=== PATIENT | female | born 1955 | race Caucasian/White ===

== ENCOUNTER → 2021-08-27 13:11 | Outpatient (CLI) | payer MEDICARE, OTHER, SELFPAY | PROVIDERS: PCP Family Medicine; Referring Provider Family Medicine; Visit Provider Family Medicine | DX: Z78.0 Asymptomatic menopausal state (principal); Z13.820 Encounter for screening for osteoporosis | CPT/HCPCS: 77080 ==

== ENCOUNTER 2022-10-15 14:14 | Emergency (ER) | payer OTHER, MEDICARE, SELFPAY ==
[2022-10-15 14:17] VITALS: BP 165/98; PULSE 98; RESP 18; TEMP 37.2; O2SAT 99; BMI 21.2
--- NOTE | 2022-10-15 14:30 | ED_ITS ---
HPI - Epistaxis <Chaitanya Feldman PA-C - Last Filed: 10/15/22 19:04> General Chief complaint: Nasal Problem Stated complaint: Nose bleed 1 hr Time Seen by Provider: 10/15/22 14:28 Source: patient Mode of arrival: Ambulatory History of Present Illness HPI Narrative: This is a 67-year-old female presents emergency department due to epistaxis. Patient states that she was playing with her dog last night when it jumped up and hit her in the nose. She is not reporting any significant nasal pain but does report a nosebleeds from the left naris that would not stop bleeding. She is not on blood thinners. She denies any losses consciousness and has not felt lightheaded or dizzy. No difficulty breathing or swallowing. Related Data Previous Rx's Medication Instructions Recorded hydrochlorothiazide 25 mg tablet See Rx Instructions .Route 09/09/22 .COMPLEX #90 tabs atenolol 50 mg tablet See Rx Instructions .Route 09/10/22 .COMPLEX #90 tabs losartan 100 mg tablet See Rx Instructions .Route 09/10/22 .COMPLEX #90 tabs Allergies Allergy/AdvReac Type Severity Reaction Status Date / Time Penicillins Allergy Unknown unknown Verified 07/23/18 13:07 Review of Systems <Chaitanya Feldman PA-C - Last Filed: 10/15/22 19:04> Review of Systems Narrative: GENERAL: Denies chills, fatigue, malaise, fever, sweats. HEENT: Reports left-sided epistaxis. Denies sinus pain, ear pain, sore throat, difficulty swallowing, dizziness. RESPIRATORY: Denies dyspnea, cough, wheezing, hemoptysis, sputum. CARDIOVASCULAR: Denies chest pain, palpitations, orthopnea, edema, GASTROINTESTINAL: Denies nausea, vomiting, abdominal pain, diarrhea, constipation, melena. : Denies dysuria, frequency, incontinence, hematuria, urinary retention. MUSCULOSKELETAL: denies weakness, joint pain, or bony pain SKIN: Denies rash, skin lesions, or other NEUROLOGIC: Denies weakness, headache, numbness, change in speech, confusion, seizures, incoordination. PSYCHIATRIC: No concerning psychosocial issues. 12 point review of systems is negative except for those stated above Patient History <GREYSON White Last Filed: 10/15/22 19:04> Medical History Chicken pox Colon polyps Hypertension (~1987) Psoriatic arthritis Surgical History Anesthesia History of section (~08/02/87) Family History Mother PKD (polycystic kidney disease) Father Peripheral neuropathy Social History marital status: number of children: 1 household members: spouse lives independently: Yes occupational status: other (retired) Smoking Status: Never smoker alcohol intake: current (occasional) substance use type: does not use Smoking Status: Never smoker alcohol intake frequency: a few times a month Substance Use Type: does not use Exam <Chaitanya Feldman PA-C - Last Filed: 10/15/22 19:04> Narrative Exam Narrative: GENERAL: Well-developed patient, in mild distress. HEAD: Atraumatic. Normocephalic. EYES: Pupils equal round and reactive. Extraocular motions intact. No scleral icterus. No injection or drainage. ENT: No nasal bone tenderness to palpation. Bleeding from left naris. Unable to visualize exact source of bleed secondary to the amount of blood in the nares. No obvious evidence of hematoma. Throat without erythema, tonsillar hypertrophy or exudate. Airway patent. NECK: Trachea midline. Non tender EXTREMITIES: No edema or joint tenderness. BACK: Nontender without deformity or crepitance. No flank tenderness. NEURO: AOx3. SKIN: No rash or erythema of visible areas Initial Vital Signs Initial Vital Signs: Vital Signs Temperature 98.9 F 10/15/22 14:17 Pulse Rate 98 H 10/15/22 14:17 Respiratory Rate 18 10/15/22 14:17 Blood Pressure 165/98 H 10/15/22 14:17 Pulse Oximetry 99 10/15/22 14:17 Oxygen Delivery Method Room Air 10/15/22 14:17 <Cory Andrews DO - Last Filed: 10/21/22 03:56> Initial Vital Signs Initial Vital Signs: Vital Signs Temperature 98.9 F 10/15/22 14:17 Pulse Rate 98 H 10/15/22 14:17 Respiratory Rate 18 10/15/22 14:17 Blood Pressure 165/98 H 10/15/22 14:17 Pulse Oximetry 99 10/15/22 14:17 Oxygen Delivery Method Room Air 10/15/22 14:17 Course <Chaitanya Feldman PA-C - Last Filed: 10/15/22 19:04> Orders Ordered: Discontinued Medications Oxymetazoline HCl (Oxymetazoline Nasal Lawrence 15 Ml) 2 sprays NASAL NOW ONE Stop: 10/15/22 14:44 Last Admin: 10/15/22 15:02 Dose: 2 sprays Documented By: PARIS Tranexamic Acid (Tranexamic Acid 1,000 Mg Vial) 2,000 mg INJ INTRA-OP ONE Stop: 10/15/22 15:07 Last Admin: 10/15/22 15:08 Dose: 1,000 mg Documented By: PARIS Vital Signs Vital signs: Vital Signs - 8 hr 10/15/22 14:17 10/15/22 15:43 Temperature 98.9 F Pulse Rate 98 H 72 Respiratory Rate 18 14 Blood Pressure 165/98 H 145/80 H Pulse Oximetry 99 99 Oxygen Delivery Method Room Air Room Air <Cory Andrews DO - Last Filed: 10/21/22 03:56> Orders Ordered: Discontinued Medications Oxymetazoline HCl (Oxymetazoline Nasal Lawrence 15 Ml) 2 sprays NASAL NOW ONE Stop: 10/15/22 14:44 Last Admin: 10/15/22 15:02 Dose: 2 sprays Documented By: PARIS Tranexamic Acid (Tranexamic Acid 1,000 Mg Vial) 2,000 mg INJ INTRA-OP ONE Stop: 10/15/22 15:07 Last Admin: 10/15/22 15:08 Dose: 1,000 mg Documented By: PARIS Vital Signs Vital signs: Vital Signs - 8 hr 10/15/22 14:17 10/15/22 15:43 Temperature 98.9 F Pulse Rate 98 H 72 Respiratory Rate 18 14 Blood Pressure 165/98 H 145/80 H Pulse Oximetry 99 99 Oxygen Delivery Method Room Air Room Air MDM - Epistaxis <Chaitanya Feldman PA-C - Last Filed: 10/15/22 19:04> MDM Narrative Medical decision making narrative: MDM * differential diagnosis includes but not limited to nasal bone fracture, anterior epistaxis, posterior epistaxis, nasal septal hematoma * Prior records reviewed: Patient has not been here for similar complaints in the past. * My lab interpretation: None obtained * My imgaing interpretation: None obtained * Clinical Decision Rules/Scores evaluated: None * Independent discussions with: None ED Course: This is a 67-year-old female presents to the emergency department due to epistaxis coming from the left naris. She would not present with a nasal bone tenderness to palpation and no imaging of the nasal bone necessary. No obvious deformities. On initial presentation patient's left knee was plugged. Afrin was attempted to be giving which did not help to improve the bleeding. A rhino rocket was administered without complications. Bleeding stopped and recommended patient follow up with primary care provider for removal in 3 days. Initially recommended antibiotics for the patient but after consulting with my supervising physician patient was called and advised to discontinue the antibiotics. Shared Decision Making: Discussed plan with patient who is comfortable with the plan. Social Considerations: None Disposition: Discharged to home Discharge Plan Departure Patient Disposition: Home Clinical Impression: Epistaxis Instructions: DI for Nosebleed Activity Restrictions/Additional Instructions: Thank you for coming to the [facility] Emergency Department today. I am glad that we are able to stop the nosebleed. Please take the antibiotics as prescribed. Please follow-up with your primary care provider for removal. I sent your medication to [facility] and [facility]. I hope you feel better soon. Prescriptions: No Action hydrochlorothiazide 25 mg tablet See Rx Instructions .ROUTE .COMPLEX Qty: 90 1RF Dose Instruction: TAKE ONE TABLET BY MOUTH ONE TIME DAILY Rx Instructions: TAKE ONE TABLET BY MOUTH ONE TIME DAILY losartan 100 mg tablet See Rx Instructions .ROUTE .COMPLEX Qty: 90 0RF Dose Instruction: TAKE ONE TABLET BY MOUTH ONE TIME DAILY Rx Instructions: TAKE ONE TABLET BY MOUTH ONE TIME DAILY atenolol 50 mg tablet See Rx Instructions .ROUTE .COMPLEX Qty: 90 0RF Dose Instruction: TAKE ONE TABLET BY MOUTH ONE TIME DAILY Rx Instructions: TAKE ONE TABLET BY MOUTH ONE TIME DAILY Referrals: Fatemeh Sanchez DO [Primary Care Provider] - Stand Alone Forms: Patient Portal/API <Cory Andrews DO - Last Filed: 10/21/22 03:56> [facility] ED Attending Danita Attestation: I was immediately available in the department for consultation. Documentation has been reviewed. I agree with assessment and plan.
[2022-10-15] MEDS: OXYMETAZOLINE NASAL SPRAY 15 ML 2 SPRAYS NASAL (15:02)
[2022-10-15] MEDS: TRANEXAMIC ACID 1,000 MG VIAL 2000 MG INJ (15:08)
--- NOTE | 2022-10-15 15:11 | PC.NURSE ---
Pt states dog jumped up yesterday and hit her nose. No asymetry noted. Had minimal bleeding yesterday then woke up this morning w/ increased bleeding from left nostril that did not resolve w/ pinching. Arrives w/ active bleeding. Not on blood thinners. Failed afrin and clamping. Walked to bathroom and vomited large clots. Denies dizziness/ light headedness. Sheldon better after vomiting. MATTEO Feldman to room to place rhino rocket w/ TXA
[2022-10-15 15:43] VITALS: BP 145/80; PULSE 72; RESP 14; O2SAT 99
== END 2022-10-15 15:44 | disposition home or self-care (01) ==
PROVIDERS: Emergency Provider Physician Assistant Medical; PCP Family Medicine
DX: R04.0 Epistaxis (principal)
CPT/HCPCS: 30901; 99282; 99283; A9270

== ENCOUNTER → 2023-02-22 14:02 | Outpatient (CLI) | payer OTHER, MEDICARE, SELFPAY ==
[2023-02-22 14:56] LABS: Influenza A - CEPHEID Flu A NEGATIVE (NEGATIVE); Influenza B - CEPHEID Flu B NEGATIVE (NEGATIVE); Respiratory Syncytial Virus Negative (Negative)
[2023-02-22 14:57] LABS: COVID-19 CEPHEID 4-PLEX PCR Negative (Negative)
== END ==
PROVIDERS: PCP Family Medicine; Visit Provider Nurse Practitioner Family
DX: R05.9 Cough, unspecified (principal)
CPT/HCPCS: 0241U

== ENCOUNTER 2023-02-22 14:11 | Inpatient (IN) | payer OTHER, MEDICARE, SELFPAY ==
[2023-02-22] VITALS (10 sets, daily range): BP systolic 136–184; BP diastolic 84–106; PULSE 96–101; RESP 14–21; TEMP 36.9–37.4; O2SAT 93–100; BMI 21.2
[2023-02-22 14:57] LABS: Add Manual Diff / Slide Review NO; Basophils Absolute Auto 0 /uL (0-100); Basophils Percent Auto 0.1 % (0-2); Eosinophils Absolute Auto 0 /uL (0-450); Hematocrit 35.5 % (36-46); Hemoglobin 12.2 g/dL (12.0-16.0); Lymphocytes Absolute Auto 500 /uL (1100-4500); Lymphocytes Percent Auto 3.2 % (25-40); Mean Corpuscular HGB Conc 34.3 % (30-36); Mean Corpuscular Volume 99.2 fL (80-100); Monocytes Absolute Auto 1300 /uL (0-900); Monocytes Percent Auto 8.4 % (3-14); Neutrophils Absolute Auto 13500 /uL (1500-7000); Neutrophils Percent Auto 88.3 % (50-75); Platelet Count 137 X10^3/uL (150-400); Red Blood Cell Count 3.58 X10^6/uL (4.0-5.2); Red Cell Distribution Width 15.4 % (11.6-14.8); White Blood Cell Count 15.3 X10^3/uL (4.5-11.0)
[2023-02-22 15:05] LABS: Alanine Aminotransferase 18 IU/L (<35); Albumin 4.1 g/dL (3.5-5.0); Albumin Globulin Ratio 1.2 (1.0-2.8); Alkaline Phosphatase 57 U/L (38-126); Aspartate Aminotransferase 50 IU/L (14-36); BUN Creatinine Ratio 30.1 (6-22); Bilirubin Total 1.5 mg/dL (0.2-1.3); Blood Urea Nitrogen 37 mg/dL (7-17); Carbon Dioxide 28 mmol/L (22-32); Chloride 92 mmol/L (98-107); Estimated Glomerular Filt Rate 48 mL/min (>60); Globulin 3.5 g/dL (1.7-4.1); Glucose 104 mg/dL (80-110); HEMOLYSIS 24 (0-50); Lipase 83 U/L (23-300); Sodium 129 mmol/L (137-145); Total Protein 7.6 g/dL (6.3-8.2)
--- NOTE | 2023-02-22 15:09 | DI.CT.S_ITS ---
PROCEDURE: CT ABDOMEN PELVIS W CON INDICATIONS: RIGHT LOWER QUADRANT ABDOMINAL PAIN TECHNIQUE: After the administration of intravenous contrast, axial sections acquired from the lung bases to the pubic symphysis. Coronal and sagittal reformats were performed. For radiation dose reduction, the following was used: automated exposure control, adjustment of mA and/or kV according to patient size. COMPARISON: None. FINDINGS: Image quality: Excellent. Lung bases: Unremarkable. Heart: No significant findings. ABDOMEN: Liver: Unremarkable. Gallbladder: Unremarkable. Biliary ducts: Unremarkable. Pancreas: Unremarkable. Spleen: Unremarkable. Adrenal Glands: Unremarkable. Kidneys and Ureters: Unremarkable. Stomach and Bowel: Multiple prominent loops of small bowel without distinct transition point. Terminal ileum as diffuse inflammatory changes. The ascending colon is diffusely thickened. Diffuse inflammatory changes surrounding the appendix which measures 1.2 centimeters in diameter. Scattered colonic diverticula. Peritoneum: No abnormal intraperitoneal fluid. No free air. Ventral Wall: No hernias. Abdominal Nodes: No retroperitoneal or mesenteric adenopathy by size criteria. Vessels: Aorta and inferior vena cava are normal in size. PELVIS: Pelvic Organs: Unremarkable. Bladder: Unremarkable. Pelvic Nodes: No enlarged lymph nodes. Miscellaneous: No hernias are seen. Bones: Chronic wedge deformity of L1. IMPRESSION: 1. Acute appendicitis. 2. Large area of diffuse wall thickening and inflammatory changes of the ascending colon, this is more than expected for reactive changes to acute appendicitis and may be secondary to systemic inflammatory etiologies. 3. Multifocal regions of hyperemia of the small bowel including areas of dilated and nondilated bowel without focal transition point is concerning for a multifocal inflammatory process. Dr. Patino discussed the above findings with Dr. Dias at 2:40 [place] time Dictated by: Eugene Patino M.D. on 02/22/2023 at 14:33 Approved by: Eugene Patino M.D. on 02/22/2023 at 14:45
--- NOTE | 2023-02-22 16:16 | PC.NURSE ---
care assumed. ambulatory to [facility]
[2023-02-22 16:33] LABS: Appearance Urine UA CLEAR; Bilirubin Urine UA 1+ (NEGATIVE); Color Urine UA YELLOW; Glucose Urine UA NEGATIVE (Negative); Ketones Urine UA NEGATIVE (NEGATIVE); Leukocyte Esterase Urine UA TRACE (NEGATIVE); Nitrite Urine UA POSITIVE (Negative); Occult Blood Urine UA 2+ (Negative); Protein Urine UA TRACE (Negative); Specific Gravity Urine UA 1.025 (1.000-1.035); Urobilinogen Urine UA 0.2 E.U./dL (0.2)
[2023-02-22] MEDS: ONDANSETRON 4 MG/2 ML INJ IV (16:47)
[2023-02-22] MEDS: KETOROLAC 30 MG/ML VIAL 15 MG IV (16:47)
[2023-02-22 16:52] LABS: Bacteria Urine Moderate (10-30); Culture Indicated Urine Specimen Cultured; Ictotest Urine Negative (Negative); RBC Urine 1-5/HPF (0-5/HPF); Squamous Epithelial Cell Urine 0-1 /HPF (0-5/HPF); WBC Urine 5-10/HPF (0-5/HPF)
--- NOTE | 2023-02-22 17:25 | ED.ABDPAIN ---
HPI - Abdominal Pain General Chief Complaint: Abdominal Pain Stated Complaint: Sent By [facility], R/low ABD pain, vomiting Time Seen by Provider: 02/22/23 16:49 Source: patient Mode of arrival: Ambulatory History of Present Illness HPI narrative: 59-year-old female comes in with complaint of right lower quadrant starting on Thursday with nausea vomiting and diarrhea. Patient states no fevers. She states vomiting and diarrhea have stopped since Thursday evening but he has stopped much of the intake. No bright red blood or melanotic stools. No dysuria urgency or frequency. No back or flank pain. Patient states pain is very localized right lower quadrant. After dose of Toradol. Patient states history of hypertension, prior . Has not had similar symptoms in the past. Reported allergy to penicillin it was possibly hallucinations as a child patient states she is had amoxicillin in the past without issue. No tobacco, alcohol no recreational drugs. Patient's primary care was Dr. Sanchez. Related Data Home Medications Medication Instructions Recorded Confirmed losartan 100 mg tablet 100 mg PO DAILY 02/25/23 02/25/23 naltrexone 50 mg tablet 50 mg PO DAILY 02/25/23 02/25/23 Previous Rx's Medication Instructions Recorded hydrochlorothiazide 25 mg tablet See Rx Instructions .Route 09/09/22 .COMPLEX #90 tabs atenolol 50 mg tablet 50 mg PO DAILY #90 tabs 12/15/22 acetaminophen 325 mg capsule 650 mg (2 x 325 mg) PO QID PRN 02/28/23 (Tylenol) pain #60 caps ibuprofen 200 mg tablet 400 mg (2 x 200 mg) PO Q6H #60 tabs 02/28/23 levofloxacin 500 mg tablet 500 mg PO DAILY #7 tabs 02/28/23 Allergies Allergy/AdvReac Type Severity Reaction Status Date / Time Penicillins Allergy Unknown unknown Verified 02/23/23 13:12 Review of Systems Review of Systems ROS Unobtainable: All systems reviewed & are unremarkable except as noted in HPI and below Patient History Medical History Psoriatic arthritis Chicken pox Colon polyps Hypertension (~1987) Surgical History Anesthesia History of section (~08/02/87) Family History Mother PKD (polycystic kidney disease) Father Peripheral neuropathy Social History marital status: number of children: 1 household members: spouse and children lives independently: Yes occupational status: other (retired) Smoking Status: Never smoker alcohol intake: never substance use type: does not use Smoking Status: Never smoker alcohol intake frequency: a few times a month Substance Use Type: does not use Exam Narrative Exam Narrative: GENERAL: Alert and oriented x three, well-appearing female in mild distress. HEENT: Head normocephalic, atraumatic, EOMI, pupils reactive, face symmetric, moist mucous membranes NECK: Supple, full range of motion CARDIOVASCULAR: Regular rate and rhythm without murmurs, rubs or gallops. RESPIRATORY: Breath sounds equal bilaterally, no wheezes rales or rhonchi. ABDOMEN: Soft, positive for right lower quadrant tenderness. Palpation of the left does increase pain on the right. Normoactive bowel sounds all 4 quadrants. No guarding or rebound, rigidity, no mass : No CVA tenderness bilaterally EXTREMITIES: Normal range of motion, no clubbing or edema. Neurovascularly intact NEUROLOGICAL: Cranial nerves II through XII grossly intact. Moving all extremities SKIN: Warm, dry, no petechiae, no rashes or lesions. Initial Vital Signs Initial Vital Signs: Vital Signs Temperature 98.4 F 02/22/23 14:20 Pulse Rate 99 H 02/22/23 14:20 Respiratory Rate 18 02/22/23 14:20 Blood Pressure 150/88 H 02/22/23 14:20 Pulse Oximetry 99 02/22/23 14:20 Oxygen Delivery Method Room Air 02/22/23 14:20 Course Orders Ordered: Discontinued Medications Acetaminophen (Acetaminophen 325 Mg Tablet) 650 mg PO Q6H PRN PRN Reason: Fever/Mild Pain (1-3) Last Admin: 02/24/23 08:25 Dose: 325 mg Documented By: VICTOR MANUEL Admin: 02/23/23 21:05 Dose: 650 mg Documented By: Admin: 02/22/23 18:39 Dose: 650 mg Documented By: AKP Amoxicillin/Clavulanate Potassium (Amoxicillin/Clav 875/125 Mg) 1 tab PO BID ALEXA Last Admin: 02/24/23 08:25 Dose: 1 tab Documented By: VICTOR MANUEL Atenolol (Atenolol 50 Mg Tablet) 50 mg PO DAILY [facility] Atenolol (Atenolol 50 Mg Tablet) 50 mg PO DAILY [facility] Last Admin: 02/24/23 10:03 Dose: 50 mg Documented By: VICTOR MANUEL Celecoxib (Celecoxib 200 Mg Capsule) 200 mg PO BID [facility] Last Admin: 02/24/23 09:22 Dose: 200 mg Documented By: VICTOR MANUEL Admin: 02/23/23 21:05 Dose: 200 mg Documented By: Admin: 02/23/23 10:52 Dose: 200 mg Documented By: LDV Heparin Sodium (Porcine) (Heparin 5,000 Unit/Ml Vial) 5,000 unit SUBCUT BID [facility] Last Admin: 02/24/23 08:36 Dose: Not Given Documented By: VICTOR MANUEL Admin: 02/23/23 21:04 Dose: 5,000 unit Documented By: ELIDA Hydrochlorothiazide (Hydrochlorothiazide 25 Mg Tablet) 25 mg PO DAILY [facility] Last Admin: 02/24/23 09:20 Dose: 25 mg Documented By: VICTOR MANUEL Hydromorphone HCl (Hydromorphone 0.5 Mg Inj) 0.5 mg IV Q4H PRN PRN Reason: Pain, Moderate (4-6) Last Admin: 02/22/23 20:28 Dose: 0.5 mg Documented By: ELIDA Piperacillin Sod/Tazobactam (Sod 4.5 gm/ Sodium Chloride) 100 mls @ 200 mls/hr IV NOW ONE Stop: 02/22/23 17:26 Last Admin: 02/22/23 17:34 Dose: 200 mls/hr Documented By: KF Sodium Chloride (Normal Saline 0.9%) 1,000 mls @ 1,000 mls/hr IV BOLUS ONE Stop: 02/22/23 18:31 Last Admin: 02/22/23 17:37 Dose: 1,000 mls/hr Documented By: KF Sodium Chloride (Normal Saline 0.9%) 1,000 mls @ 125 mls/hr IV CONT ALEXA Stop: 02/23/23 05:44 Last Infusion: 02/23/23 14:57 Dose: Infused Documented By: Admin: 02/23/23 04:13 Dose: 125 mls/hr Documented By: Infusion: 02/23/23 04:13 Dose: Infused Documented By: Admin: 02/22/23 20:27 Dose: 125 mls/hr Documented By: ELIDA Piperacillin Sod/Tazobactam (Sod 3.375 gm/ Sodium Chloride) 100 mls @ 25 mls/hr IV Q8H ALEXA Last Admin: 02/22/23 18:41 Dose: Not Given Documented By: LDV Sodium Chloride (Normal Saline 0.9%) 1,000 mls @ 1,000 mls/hr IV BOLUS ONE Stop: 02/22/23 18:44 Last Admin: 02/22/23 18:30 Dose: 1,000 mls/hr Documented By: LDV Magnesium Sulfate (Magnesium Sulfate) 4 gm in 100 mls @ 25 mls/hr IV NOW ONE Stop: 02/22/23 22:17 Last Admin: 02/22/23 20:25 Dose: 25 mls/hr Documented By: ELIDA Co-signed By: Piperacillin Sod/Tazobactam (Sod 3.375 gm/ Sodium Chloride) 100 mls @ 25 mls/hr IV Q8H [facility] Last Admin: 02/24/23 00:39 Dose: 25 mls/hr Documented By: Infusion: 02/23/23 22:25 Dose: Infused Documented By: Admin: 02/23/23 18:25 Dose: 25 mls/hr Documented By: Infusion: 02/23/23 14:57 Dose: Infused Documented By: Admin: 02/23/23 10:51 Dose: 25 mls/hr Documented By: Infusion: 02/23/23 04:28 Dose: Infused Documented By: Admin: 02/23/23 00:28 Dose: 25 mls/hr Documented By: ELIDA POTASSIUM CHLORIDE IN WATER (Potassium Cl 10 Meq/100 Ml Sunita) 10 meq in 100 mls @ 100 mls/hr IV Q1H ALEXA Stop: 02/23/23 08:14 Last Admin: 02/23/23 07:34 Dose: 100 mls/hr Documented By: Infusion: 02/23/23 07:18 Dose: Infused Documented By: Admin: 02/23/23 06:18 Dose: 100 mls/hr Documented By: ELIDA POTASSIUM CHLORIDE IN WATER (Potassium Cl 10 Meq/100 Ml Sunita) 10 meq in 100 mls @ 100 mls/hr IV Q1H ALEXA Stop: 02/23/23 10:14 Last Admin: 02/23/23 09:50 Dose: 100 mls/hr Documented By: Infusion: 02/23/23 09:34 Dose: Infused Documented By: Admin: 02/23/23 08:34 Dose: 100 mls/hr Documented By: LORETO Ketorolac Tromethamine (Ketorolac 30 Mg/Ml Vial) 15 mg IV NOW ONE Stop: 02/22/23 16:44 Last Admin: 02/22/23 16:47 Dose: 15 mg Documented By: KAREN Losartan Potassium (Losartan 50 Mg Tablet) 100 mg PO DAILY [facility] Last Admin: 02/24/23 09:19 Dose: 100 mg Documented By: VICTOR MANUEL Melatonin (Melatonin 3 Mg Tablet) 6 mg PO BEDTIME PRN PRN Reason: Insomnia Metoclopramide HCl (Metoclopramide 10 Mg/2 Ml Inj) 10 mg IV Q6HR PRN PRN Reason: Nausea And Vomiting Naloxone HCl (Naloxone 0.4 Mg/Ml Vial) 0.2 mg IV Q2MIN PRN PRN Reason: Opiate Reversal Ondansetron HCl (Ondansetron 4 Mg Odt) 4 mg PO NOW PRN PRN Reason: Nausea And Vomiting Ondansetron HCl (Ondansetron 4 Mg/2 Ml Inj) 4 mg IV NOW PRN PRN Reason: Nausea And Vomiting Last Admin: 02/22/23 16:47 Dose: 4 mg Documented By: KAREN Ondansetron HCl (Ondansetron 4 Mg/2 Ml Inj) 4 mg IV Q4HR PRN PRN Reason: NV Oxycodone HCl (Oxycodone Ir 5 Mg Tablet) 5 mg PO Q4HR PRN PRN Reason: Pain, Moderate (4-6) Potassium Chloride (Potassium Chloride 20 Meq Tab) 40 meq PO NOW ONE Stop: 02/22/23 17:53 Last Admin: 02/22/23 18:39 Dose: 40 meq Documented By: AKP Potassium Chloride (Potassium Chloride 20 Meq Tab) 40 meq PO NOW ONE Stop: 02/23/23 13:16 Last Admin: 02/23/23 15:03 Dose: 40 meq Documented By: BT Potassium Chloride (Potassium Chloride 20 Meq Tab) 40 meq PO Q6H [facility] Stop: 02/24/23 13:31 Last Admin: 02/24/23 08:24 Dose: 40 meq Documented By: BV Vital Signs Vital signs: Vital Signs - 8 hr 02/22/23 14:20 02/22/23 16:20 02/22/23 16:21 Temperature 98.4 F Pulse Rate 99 H 100 H Respiratory Rate 18 16 Blood Pressure 150/88 H 184/106 H Pulse Oximetry 99 Oxygen Delivery Method Room Air 02/22/23 16:21 02/22/23 16:30 02/22/23 16:30 Temperature Pulse Rate 99 H 98 H Respiratory Rate 19 20 Blood Pressure 173/100 H Pulse Oximetry 94 98 Oxygen Delivery Method 02/22/23 17:00 02/22/23 17:00 02/22/23 17:30 Temperature Pulse Rate 97 H 97 H Respiratory Rate 14 21 Blood Pressure 153/86 H Pulse Oximetry 96 93 Oxygen Delivery Method 02/22/23 17:30 Temperature Pulse Rate Respiratory Rate Blood Pressure 136/90 Pulse Oximetry Oxygen Delivery Method MDM - Abdominal Pain Lab Data 02/24/23 04:54 02/24/23 04:54 Labs: Lab Results 02/22/23 02/22/23 Range/Units 14:45 16:15 WBC 15.3 H (4.5-11.0) X10^3/uL RBC 3.58 L (4.0-5.2) X10^6/uL Hgb 12.2 (12.0-16.0) g/dL Hct 35.5 L (36-46) % MCV 99.2 (80-100) fL MCH 34.0 (26-34) PG MCHC 34.3 (30-36) % RDW 15.4 H (11.6-14.8) % Plt Count 137 L (150-400) X10^3/uL Neut % (Auto) 88.3 H (50-75) % Lymph % (Auto) 3.2 L (25-40) % [place] % (Auto) 8.4 (3-14) % Eos % (Auto) 0.0 L (2-4) % Baso % (Auto) 0.1 (0-2) % Neut # (Auto) 86007 H (2593-1355) /uL Lymph # (Auto) 500 L (1230-7814) /uL [place] # (Auto) 1300 H (0-900) /uL Eos # (Auto) 0 (0-450) /uL Baso # (Auto) 0 (0-100) /uL ESR 56 H (0-20) MM/HR Sodium 129 L (137-145) mmol/L Potassium 3.0 L (3.4-5.1) mmol/L Chloride 92 L (98-107) mmol/L Carbon Dioxide 28 (22-32) mmol/L BUN 37 H (7-17) mg/dL Creatinine 1.23 H (0.52-1.04) mg/dL Estimated GFR 48 L (>60) mL/min BUN/Creatinine Ratio 30.1 H (6-22) Glucose 104 (80-110) mg/dL Lactate 1.6 (0.7-2.1) mmol/L Calcium 9.0 (8.4-10.2) mg/dL Magnesium 1.0 L (1.6-2.3) mg/dL Total Bilirubin 1.5 H (0.2-1.3) mg/dL AST 50 H (14-36) IU/L ALT 18 (<35) IU/L Alkaline Phosphatase 57 (38-126) U/L C-Reactive Protein 19.5 H (<1.0) mg/dL Total Protein 7.6 (6.3-8.2) g/dL Albumin 4.1 (3.5-5.0) g/dL Globulin 3.5 (1.7-4.1) g/dL Albumin/Globulin Ratio 1.2 (1.0-2.8) Lipase 83 (23-300) U/L Procalcitonin 78.9 H (<0.5) ng/mL Urine Color Yellow Urine Appearance Clear Urine pH 5.0 (4.5-8.0) Ur Specific [place] 1.025 (1.000-1.035) Urine Protein Trace H (Negative) Urine Glucose (UA) Negative (Negative) g/dL Urine Ketones Negative (NEGATIVE) Urine Occult Blood 2+ H (Negative) Urine Nitrate Positive H (Negative) Urine Bilirubin 1+ H (NEGATIVE) Ur Bilirubin Confirm Negative (Negative) Urine Urobilinogen 0.2 (0.2) E.U./dL Ur Leukocyte Esterase Trace H (NEGATIVE) Urine RBC 1-5/hpf (0-5/HPF) Urine WBC 5-10/hpf H (0-5/HPF) Ur Squamous Epith Cells 0-1 /hpf (0-5/HPF) Urine Bacteria Moderate (10-30) H (None) Ur Culture Indicated? Specimen cultured Point of care testing: Urine Dip Bedside Urine Glucose Negative Bedside Urine Bilirubin - Negative Bedside Urine Ketone - Negative Urine Specific [place] 1.020 Bedside Urine Occult Blood +++ Bedside Urine pH 6.0 Bedside Urine Protein + 30 Bedside Urine Urobilinogen - Negative Bedside Urine Nitrite - Negative Bedside Urine Leukocytes + [address] scan - abdomen/pelvis: Radiologist's Impression: Close Abdomen/Pelvis CT (Signed) Eugene Patino - 02/22/23 Bone Densitometry 08/27/21 DEXA Result 08/27/21 Launch?[place] [address] CT Scan Report Signed Patient: Judy Montague MR#: [id number] : 1955 Acct:[id number] Age/Sex: 67 / F Date of Service: 02/22/23 Loc: ED Accession Number: [id number] Procedure: CT abdomen pelvis w con Ordering Provider: Vy Dias D.O. PROCEDURE: CT ABDOMEN PELVIS W CON INDICATIONS: RIGHT LOWER QUADRANT ABDOMINAL PAIN TECHNIQUE: After the administration of intravenous contrast, axial sections acquired from the lung bases to the pubic symphysis. Coronal and sagittal reformats were performed. For radiation dose reduction, the following was used: automated exposure control, adjustment of mA and/or kV according to patient size. COMPARISON: None. FINDINGS: Image quality: Excellent. Lung bases: Unremarkable. Heart: No significant findings. ABDOMEN: Liver: Unremarkable. Gallbladder: Unremarkable. Biliary ducts: Unremarkable. Pancreas: Unremarkable. Spleen: Unremarkable. Adrenal Glands: Unremarkable. Kidneys and Ureters: Unremarkable. Stomach and Bowel: Multiple prominent loops of small bowel without distinct transition point. Terminal ileum as diffuse inflammatory changes. The ascending colon is diffusely thickened. Diffuse inflammatory changes surrounding the appendix which measures 1.2 centimeters in diameter. Scattered colonic diverticula. Peritoneum: No abnormal intraperitoneal fluid. No free air. Ventral Wall: No hernias. Abdominal Nodes: No retroperitoneal or mesenteric adenopathy by size criteria. Vessels: Aorta and inferior vena cava are normal in size. PELVIS: Pelvic Organs: Unremarkable. Bladder: Unremarkable. Pelvic Nodes: No enlarged lymph nodes. Miscellaneous: No hernias are seen. Bones: Chronic wedge deformity of L1. IMPRESSION: 1. Acute appendicitis. 2. Large area of diffuse wall thickening and inflammatory changes of the ascending colon, this is more than expected for reactive changes to acute appendicitis and may be secondary to systemic inflammatory etiologies. 3. Multifocal regions of hyperemia of the small bowel including areas of dilated and nondilated bowel without focal transition point is concerning for a multifocal inflammatory process. Dr. Patino discussed the above findings with Dr. Dias at 2:40 p.m. [place] time Dictated by: Eugene Patino M.D. on 02/22/2023 at 14:33 Approved by: Eugene Patino M.D. on 02/22/2023 at 14:45 [facility] Narrative Medical decision making narrative: 67-year-old female presents with complaint of right lower quadrant pain CT abdomen pelvis shows what looks like appendicitis but also bowel wall thickening of the ascending colon and multiple intermittent areas in the small bowel concerning possibly inflammatory component. Patient is afebrile but does have a white count, platelets are slightly low hemoglobin is appropriate, creatinine appears elevated and patient does have electrolyte abnormalities with potassium and sodium could be secondary to emesis dehydration. Patient is unsure if she is had any right elevations in her creatinine but does not recall any. Patient has some mild changes to her LFTs. She does have a tight treat positive urine but no other UTI symptoms such as dysuria urgency or frequency. Patient was covered with IV antibiotics. Fluids. She had received a dose of Toradol prior to results. Discussed findings with Dr. Dalal, general surgery she is happy to see the patient either as consultation or primary service but does feel be appropriate to have medicine involved. She defers which should be primary services medicine versus general surgery to the hospitalist. Agrees with plan for IV antibiotics we will watch overnight and then make final decision about surgical intervention versus other. Spoke with Dr. Falk, hospitalist would like for medicine to be primary service. Does ask for ESR, CRP, protocol to be added on will include lactate and cultures as well. 222 patient has been given dose of IV antibiotic. It is noted in the EMR psoriatic arthritis although patient had not relayed this as part of her history. Discharge Plan Departure Patient Disposition: Admitted As Inpatient Clinical Impression: Bowel wall thickening, Hyponatremia, Hypokalemia, Acute UTI Acute appendicitis Qualifiers: Acute appendicitis type: with localized peritonitis Appendicitis gangrene presence: without gangrene Appendicitis perforation presence: without perforation Appendicitis abscess presence: with abscess Qualified Code(s): K35.33 - Acute appendicitis with perforation, localized peritonitis, and gangrene, with abscess Admit Date/Time: 02/22/23 17:39 Admit Provider: Obie Falk
[2023-02-22] MEDS: PIPERACILLIN/TAZO 4.5 GM in SODIUM CHLORIDE 0.9% 100 ML IV (17:34)
[2023-02-22] MEDS: SODIUM CHLORIDE 0.9% 1,000 ML 1000 ML IV ×2 (17:37→18:30)
[2023-02-22 17:46] LABS: Lactate (Lactic Acid) 1.6 mmol/L (0.7-2.1)
--- NOTE | 2023-02-22 17:47 | PC.NURSE ---
per lab, orders added on
--- NOTE | 2023-02-22 17:51 | PC.NURSE ---
provided clear liquid per stacie from dr agudelo
[2023-02-22 18:00] LABS: C-Reactive Protein Quant 19.5 mg/dL (<1.0)
[2023-02-22 18:04] LABS: Procalcitonin 78.9 ng/mL (<0.5)
--- NOTE | 2023-02-22 18:10 | PM.CALLCOV.1 ---
Call Coverage Note Note Date of Patient Contact: 02/22/23 Time of Patient Contact: 18:10 Narrative of Care Provided: CT scan reviewed and agree with findings of cecal, ascending and TI inflammation as well as appendicitis in a distribution not seen with even ruptured appendicitis. Bowel rest with IV antibiotics, re evaluate in am
[2023-02-22 18:33] LABS: Erythrocyte Sedimentation Rate 56 MM/HR (0-20)
[2023-02-22] MEDS: POTASSIUM CHLORIDE 20 MEQ TAB 40 MEQ PO (18:39)
[2023-02-22] MEDS: ACETAMINOPHEN 325 MG TABLET 650 MG PO (18:39)
--- NOTE | 2023-02-22 20:14 | PM.HP.1 ---
History of Present Illness History of Present Illness Chief complaint: Sent By [facility], R/low ABD pain, vomiting Narrative: 67 years old female with history of hypertension, prior , presented to the ER with right lower quadrant abdominal pain, diarrhea and vomiting since Thursday. The patient describes the pain as sharp, constant, moderate, aggravated by movement, relieved by Pepto-Bismol, associated with nausea and vomiting. Denies any hematemesis or melena. Denies any fever. Reports also feeling thirsty and dehydrated. The diarrhea stopped on Thursday but the pain was still present. Allergic to penicillin. In the ER her CT scan of the abdomen shows acute appendicitis with large area of diffuse wall thickening and inflammatory changes of the ascending colon. Concerning for a multifocal inflammatory process. Her initial laboratory shows WBC 15.3, H&H 12.2/35.5, platelets 137, ESR 56, sodium 129, potassium 3, magnesium 1, creatinine 1.23, C-reactive protein 19.5, procalcitonin 78.9, UA consistent with UTI, respiratory viral panel negative, vital signs shows pulse 98, blood pressure 163/93, temperature 99.4, pulse oximeter 98% on room air. Surgery was contacted and recommended IV antibiotics, fluids and we will see her in the morning. [facility] Medical History Psoriatic arthritis Chicken pox Colon polyps Hypertension (~1987) Surgical History Anesthesia History of section (~08/02/87) Family History Mother PKD (polycystic kidney disease) Father Peripheral neuropathy Social History marital status: number of children: 1 household members: spouse and children lives independently: Yes occupational status: other (retired) Smoking Status: Never smoker alcohol intake: current substance use type: does not use Meds Home Medications and Allergies Home Medications Medication Instructions Recorded Confirmed Type hydrochlorothiazide 25 mg tablet See Rx Instructions .Route 09/09/22 02/22/23 Rx .COMPLEX #90 tabs atenolol 50 mg tablet 50 mg PO DAILY #90 tabs 12/15/22 02/22/23 Rx losartan 100 mg tablet 100 mg PO DAILY #90 tabs 12/18/22 02/22/23 Rx naltrexone 50 mg tablet 50 mg PO DAILY #30 tabs 02/02/23 02/22/23 Rx Allergies Allergy/AdvReac Type Severity Reaction Status Date / Time Penicillins Allergy Unknown unknown Verified 02/22/23 14:20 Review of Systems Review of Systems ROS: Yes All systems reviewed with the patient and are negative except as otherwise documented Constitutional Constitutional: Reports as per HPI and Reports system reviewed and no additional complaints, except as documented Eyes Eyes: Reports as per HPI and Reports system reviewed and no additional complaints, except as documented ENT Ears, Nose, Mouth, and Throat: Yes as per HPI and Yes system reviewed and no additional complaints, except as documented Cardiovascular Cardiovascular: Reports system reviewed and no additional complaints, except as documented Respiratory Respiratory: Reports system reviewed and no additional complaints, except as documented Gastrointestinal Gastrointestinal: Reports system reviewed and no additional complaints, except as documented Genitourinary Genitourinary: Reports system reviewed and no additional complaints, except as documented Musculoskeletal Musculoskeletal: Reports system reviewed and no additional complaints, except as documented, Reports abnormal gait and Reports numbness Neurologic Neurologic: Reports system reviewed and no additional complaints, except as documented, Reports abnormal gait, Reports confusion and Reports numbness Psychiatric Psychiatric: Reports system reviewed and no additional complaints, except as documented and Reports confusion Exam Vital Signs (past 8 hours): - 02/22/23 14:20 02/22/23 16:20 02/22/23 16:21 Temperature 98.4 F Pulse Rate 99 H 100 H Respiratory Rate 18 16 Blood Pressure 150/88 H 184/106 H Pulse Oximetry 99 Oxygen Delivery Method Room Air 02/22/23 16:21 02/22/23 16:30 02/22/23 16:30 Temperature Pulse Rate 99 H 98 H Respiratory Rate 19 20 Blood Pressure 173/100 H Pulse Oximetry 94 98 Oxygen Delivery Method 02/22/23 17:00 02/22/23 17:00 02/22/23 17:30 Temperature Pulse Rate 97 H 97 H Respiratory Rate 14 21 Blood Pressure 153/86 H Pulse Oximetry 96 93 Oxygen Delivery Method 02/22/23 17:30 02/22/23 18:18 02/22/23 18:39 Temperature 99.4 F 99.4 F Pulse Rate 98 H Respiratory Rate 16 Blood Pressure 136/90 163/93 H Pulse Oximetry 98 Oxygen Delivery Method Oxygen Delivery Method Room Air Const General: cooperative, comfortable and well developed Orientation: alert and oriented x3 HENMT Head: normal to inspection, normocephalic and atraumatic Face and sinus: normal facial exam Mouth: oral mucosae normal and moist mucous membranes Throat: posterior oropharynx normal Eyes General: appearance normal, both eyes and all related structures Pupils: PERRL EOM: EOM intact bilaterally Neck Neck: normal visual inspection and full ROM Chest Chest: normal inspection of the chest Resp Effort & Inspection: normal respiratory effort and able to speak in complete sentences Auscultation: clear to auscultation bilaterally Cardio Palpation: normal PMI Rate: regular rate Rhythm: regular rhythm Heart Sounds: S1 normal and S2 normal GI Inspection: normal to inspection Palpation: soft and no hepatosplenomegaly Auscultation: normal bowel sounds Skin General: no rashes or lesions noted Lesions: no lesions Rashes: no rashes Trauma: no lacerations or abrasions Neuro General: patient alert, patient awake, patient oriented x3 and no focal motor deficits Cranial Nerves: CN's II-XI intact bilaterally Cognition: normal cognition Speech: speech normal Gait: normal gait Motor: muscle tone normal throughout Sensory Exam: no sensory deficits noted Extrem General: full ROM and no calf tenderness Psych Appearance: grossly normal Mental Status: mental status grossly normal Speech and Movement: speech and movement normal Objective Labs 02/22/23 14:45 02/22/23 14:45 Labs: Laboratory Results - last 24 hr 02/22/23 02/22/23 14:45 16:15 WBC 15.3 H RBC 3.58 L Hgb 12.2 Hct 35.5 L MCV 99.2 MCH 34.0 MCHC 34.3 RDW 15.4 H Plt Count 137 L Neut % (Auto) 88.3 H Lymph % (Auto) 3.2 L [place] % (Auto) 8.4 Eos % (Auto) 0.0 L Baso % (Auto) 0.1 Neut # (Auto) 03016 H Lymph # (Auto) 500 L [place] # (Auto) 1300 H Eos # (Auto) 0 Baso # (Auto) 0 ESR 56 H Sodium 129 L Potassium 3.0 L Chloride 92 L Carbon Dioxide 28 BUN 37 H Creatinine 1.23 H Estimated GFR 48 L BUN/Creatinine Ratio 30.1 H Glucose 104 Lactate 1.6 Calcium 9.0 Magnesium 1.0 L Total Bilirubin 1.5 H AST 50 H ALT 18 Alkaline Phosphatase 57 C-Reactive Protein 19.5 H Total Protein 7.6 Albumin 4.1 Globulin 3.5 Albumin/Globulin Ratio 1.2 Lipase 83 Procalcitonin 78.9 H Urine Color Yellow Urine Appearance Clear Urine pH 5.0 Ur Specific [place] 1.025 Urine Protein Trace H Urine Glucose (UA) Negative Urine Ketones Negative Urine Occult Blood 2+ H Urine Nitrate Positive H Urine Bilirubin 1+ H Ur Bilirubin Confirm Negative Urine Urobilinogen 0.2 Ur Leukocyte Esterase Trace H Urine RBC 1-5/hpf Urine WBC 5-10/hpf H Ur Squamous Epith Cells 0-1 /hpf Urine Bacteria Moderate (10-30) H Ur Culture Indicated? Specimen cultured Assessment & Plan Assessment and plan (1) Acute appendicitis: Status: Acute Plan: Patient meets the criteria for sepsis. N.p.o. IV antibiotics Pain medications and Tylenol p.o. as needed Antiemetics as needed Surgical consult IV fluids (2) DEEPTI (acute kidney injury): Status: Acute Plan: Baseline creatinine not available. IV fluids Avoid potentially nephrotoxic medications Hold losartan and diuretics for now BMP daily (3) Acute UTI: Status: Acute Plan: Continue with antibiotics Follow-up on the blood cultures and urine cultures (4) Hypomagnesemia: Status: Acute Plan: Replace and monitor (5) Hypokalemia: Status: Acute Plan: Replace and monitor (6) Hyponatremia: Status: Acute Plan: IV fluids BMP daily (7) Hypertension: Qualifiers: Hypertension type: essential hypertension Qualified Code(s): I10 - Essential (primary) hypertension Status: Chronic Plan: Hold losartan and hydrochlorothiazide Continue atenolol Hydralazine as needed Time Spent With Patient Time with patient: 50 to 69 minutes with 50% spent counseling/coordinating care Quality VTE Deep Vein Thrombosis/Pulmonary Embolism Present on Admission: No MIPS - Admit I confirm the patient?s Advance Care Plan is present, Code status is documented, Surrogate decision maker is in patient?s record [If Yes, STOP here]: Yes MIPS - Meds 'Current medications' to include all prescriptions, [id number] products, herbals, cannabis/cannabidiol products, and vitamin/mineral/dietary (nutritional) supplements. I have utilized all available resources to obtain, update, or review the patient?s current medications. [If Yes, STOP here]: Yes
[2023-02-22] MEDS: MAGNESIUM SULFATE 4 GM/100 ML PIGGYBACK IV (20:25)
[2023-02-22] MEDS: SODIUM CHLORIDE 0.9% 1,000 ML 125 ML IV (20:27)
[2023-02-22] MEDS: HYDROMORPHONE 0.5 MG INJ IV (20:28)
--- NOTE | 2023-02-22 22:02 | PC.NURSE ---
Patient states that she was told by her parents that she had an allergic reaction to Penicillin as a baby, reaction unknown. Patient received a dose of Zosyn in the ED, patient denies adverse reactions. MD Russo aware.
[2023-02-23] MEDS: PIPERACILLIN/TAZO 3.375 GM in SODIUM CHLORIDE 0.9% 100 ML IV ×3 (00:28→18:25)
[2023-02-23 04:03] VITALS: BP 121/80; PULSE 92; RESP 18; TEMP 36.6; O2SAT 98
[2023-02-23] MEDS: SODIUM CHLORIDE 0.9% 1,000 ML 125 ML IV (04:13)
[2023-02-23 05:21] LABS: Add Manual Diff / Slide Review NO; Basophils Absolute Auto 0 /uL (0-100); Basophils Percent Auto 0.2 % (0-2); Eosinophils Absolute Auto 100 /uL (0-450); Eosinophils Percent Auto 0.6 % (2-4); Hematocrit 29.4 % (36-46); Hemoglobin 10.2 g/dL (12.0-16.0); Lymphocytes Absolute Auto 300 /uL (1100-4500); Lymphocytes Percent Auto 3.8 % (25-40); Mean Corpuscular HGB Conc 34.6 % (30-36); Mean Corpuscular Hemoglobin 34.3 PG (26-34); Monocytes Absolute Auto 500 /uL (0-900); Monocytes Percent Auto 5.9 % (3-14); Neutrophils Absolute Auto 8000 /uL (1500-7000); Neutrophils Percent Auto 89.5 % (50-75); Platelet Count 108 X10^3/uL (150-400); Red Blood Cell Count 2.97 X10^6/uL (4.0-5.2); Red Cell Distribution Width 15.5 % (11.6-14.8)
[2023-02-23 05:39] LABS: Alanine Aminotransferase 15 IU/L (<35); Alkaline Phosphatase 49 U/L (38-126); Aspartate Aminotransferase 41 IU/L (14-36); BUN Creatinine Ratio 30.7 (6-22); Bilirubin Total 1.1 mg/dL (0.2-1.3); Blood Urea Nitrogen 35 mg/dL (7-17); Calcium 8.1 mg/dL (8.4-10.2); Carbon Dioxide 25 mmol/L (22-32); Chloride 101 mmol/L (98-107); Estimated Glomerular Filt Rate 52 mL/min (>60); Globulin 2.9 g/dL (1.7-4.1); Glucose 97 mg/dL (80-110); HEMOLYSIS < 15 (0-50); Magnesium 2.4 mg/dL (1.6-2.3); Sodium 132 mmol/L (137-145); Total Protein 5.9 g/dL (6.3-8.2)
[2023-02-23 05:48] LABS: Potassium 2.8 mmol/L (3.4-5.1); Procalcitonin 62.7 ng/mL (<0.5)
[2023-02-23] MEDS: POTASSIUM CHLORIDE IN WATER 10 MEQ/100 ML PIGGYBACK 100 MEQ IV ×4 (06:18→09:50)
--- NOTE | 2023-02-23 06:49 | PC.NURSE ---
Morning lab results came back: Potassium 2.8, MD Russo notified. IV potassium infusing, tele placed. No complaints of pain, nausea, SOB.
[2023-02-23 07:18] VITALS: BP 132/88; PULSE 85; RESP 18; TEMP 36.4; O2SAT 97
--- NOTE | 2023-02-23 09:26 | P.CONS_ITS ---
History of Present Illness Consult details Date Patient Seen: 02/23/23 Time Patient Seen: 09:26 Chief complaint: Sent By [facility], R/low ABD pain, vomiting Reason for consult: appendicitis Requesting provider: Vy Dias Narrative: Several days of nausea and emesis then with new onset RLQ pain. + BMs and flatus. Feels better today, pain in RLQ only if she pushes there. Meds Home Medications and Allergies Home Medications Medication Instructions Recorded Confirmed Type hydrochlorothiazide 25 mg tablet See Rx Instructions .Route 09/09/22 02/22/23 Rx .COMPLEX #90 tabs atenolol 50 mg tablet 50 mg PO DAILY #90 tabs 12/15/22 02/22/23 Rx losartan 100 mg tablet 100 mg PO DAILY #90 tabs 12/18/22 02/22/23 Rx naltrexone 50 mg tablet 50 mg PO DAILY #30 tabs 02/02/23 02/22/23 Rx Allergies Allergy/AdvReac Type Severity Reaction Status Date / Time Penicillins Allergy Unknown unknown Verified 02/22/23 14:20 Review of Systems Review of Systems ROS: Yes All systems reviewed with the patient and are negative except as otherwise documented Exam Vital Signs (past 8 hours): - 02/23/23 04:03 02/23/23 07:18 Temperature 97.9 F 97.5 F L Pulse Rate 92 H 85 Respiratory Rate 18 18 Blood Pressure 121/80 132/88 Pulse Oximetry 98 97 Oxygen Flow Rate 0 Oxygen Delivery Method Room Air Oxygen Flow Rate 0 Narrative Exam Narrative: No family history for inflammatory bowel disease Const General: cooperative and comfortable Nutritional Appearance: average body habitus HENME Head: normocephalic and atraumatic Eyes General: appearance normal, both eyes and all related structures Sclera: normal sclerae Neck Neck: trachea midline Resp Effort & Inspection: normal respiratory effort and able to speak in complete sentences Cardio Rate: regular rate Rhythm: regular rhythm GI Palpation: soft and tender (RLQ no acute abdomen) Skin General: turgor normal Neuro General: patient alert, patient awake and patient oriented x3 Cranial Nerves: tongue midline Cognition: normal cognition Extrem General: normal to inspection Psych Appearance: grossly normal Mental Status: mental status grossly normal Judgment: judgment good Objective Labs 02/23/23 04:34 02/23/23 04:34 Labs: Laboratory Results - last 24 hr 02/22/23 02/22/2302/23/23 14:45 16:15 04:34 WBC 15.3 H 9.0 RBC 3.58 L 2.97 L Hgb 12.2 10.2 L Hct 35.5 L 29.4 L MCV 99.2 99.0 MCH 34.0 34.3 H MCHC 34.3 34.6 RDW 15.4 H 15.5 H Plt Count 137 L 108 L Neut % (Auto) 88.3 H 89.5 H Lymph % (Auto) 3.2 L 3.8 L [place] % (Auto) 8.4 5.9 Eos % (Auto) 0.0 L 0.6 L Baso % (Auto) 0.1 0.2 Neut # (Auto) 96406 H 8000 H Lymph # (Auto) 500 L 300 L [place] # (Auto) 1300 H 500 Eos # (Auto) 0 100 Baso # (Auto) 0 0 ESR 56 H Sodium 129 L 132 L Potassium 3.0 L 2.8 L Chloride 92 L 101 Carbon Dioxide 28 25 BUN 37 H 35 H Creatinine 1.23 H 1.14 H Estimated GFR 48 L 52 L BUN/Creatinine Ratio 30.1 H 30.7 H Glucose 104 97 Lactate 1.6 Calcium 9.0 8.1 L Magnesium 1.0 L 2.4 H Total Bilirubin 1.5 H 1.1 AST 50 H 41 H ALT 18 15 Alkaline Phosphatase 57 49 C-Reactive Protein 19.5 H 21.0 H Total Protein 7.6 5.9 L Albumin 4.1 3.0 L Globulin 3.5 2.9 Albumin/Globulin Ratio 1.2 1.0 Lipase 83 Procalcitonin 78.9 H 62.7 H Urine Color Yellow Urine Appearance Clear Urine pH 5.0 Ur Specific [place] 1.025 Urine Protein Trace H Urine Glucose (UA) Negative Urine Ketones Negative Urine Occult Blood 2+ H Urine Nitrate Positive H Urine Bilirubin 1+ H Ur Bilirubin Confirm Negative Urine Urobilinogen 0.2 Ur Leukocyte Esterase Trace H Urine RBC 1-5/hpf Urine WBC 5-10/hpf H Ur Squamous Epith Cells 0-1 /hpf Urine Bacteria Moderate (10-30) H Ur Culture Indicated? Specimen cultured [facility] Medical History Psoriatic arthritis Chicken pox Colon polyps Hypertension (~1987) Surgical History Anesthesia History of section (~08/02/87) Family History Mother PKD (polycystic kidney disease) Father Peripheral neuropathy Social History marital status: number of children: 1 household members: spouse and children lives independently: Yes occupational status: other (retired) Tobacco & Substance Use Smoking Status: Never smoker alcohol intake: current substance use type: does not use Assessment & Plan Assessment & Plan narrative: CTscan shows right colon, appendix and TI all inflammed. Denies previous symptoms or family history for Crohn's Plan: Responding to antibiotics. Start Clear liquids and advance as tolerated Re eval in am and switch to Augmentin for possible discharge home Recommend colonoscopy 6-8 weeks or when they get back from [place] Time Spent With Patient Time with patient: 30 to 49 minutes with 50% spent counseling/coordinating care
[2023-02-23] MEDS: CELECOXIB 200 MG CAPSULE PO ×2 (10:52→21:05)
[2023-02-23 11:00] VITALS: BP 149/102; PULSE 88; RESP 18; TEMP 36.6; O2SAT 98
[2023-02-23 12:45] LABS: HEMOLYSIS 26 (0-50); Potassium 3.2 mmol/L (3.4-5.1)
[2023-02-23] MEDS: POTASSIUM CHLORIDE 20 MEQ TAB 40 MEQ PO (15:03)
--- NOTE | 2023-02-23 15:23 | P.PN_ITS ---
Subjective Subjective Date Patient Seen: 02/23/23 Time Patient Seen: 08:00 Interval history: She is feeling improved today. Her abdominal pain is controlled. Exam Vital Signs (past 8 hours): - 02/23/23 11:00 Temperature 97.9 F Pulse Rate 88 Respiratory Rate 18 Blood Pressure 149/102 H Pulse Oximetry 98 Oxygen Flow Rate 0 Oxygen Delivery Method Room Air Oxygen Flow Rate 0 Narrative Exam Narrative: GEN: no acute distress CV: regular rate and rhythm PULM: clear bilaterally ABD: soft, mild tenderness rlq, no rebound/guarding EXT; warm and well perfused with no edema Objective Labs 02/23/23 04:34 02/23/23 12:25 Labs: Laboratory Results - last 24 hr 02/22/23 02/22/23 02/23/23 14:45 16:15 04:34 WBC 9.0 RBC 2.97 L Hgb 10.2 L Hct 29.4 L MCV 99.0 MCH 34.3 H MCHC 34.6 RDW 15.5 H Plt Count 108 L Neut % (Auto) 89.5 H Lymph % (Auto) 3.8 L [place] % (Auto) 5.9 Eos % (Auto) 0.6 L Baso % (Auto) 0.2 Neut # (Auto) 8000 H Lymph # (Auto) 300 L [place] # (Auto) 500 Eos # (Auto) 100 Baso # (Auto) 0 ESR 56 H Sodium 132 L Potassium 2.8 L Chloride 101 Carbon Dioxide 25 BUN 35 H Creatinine 1.14 H Estimated GFR 52 L BUN/Creatinine Ratio 30.7 H Glucose 97 Lactate 1.6 Calcium 8.1 L Magnesium 1.0 L 2.4 H Total Bilirubin 1.1 AST 41 H ALT 15 Alkaline Phosphatase 49 C-Reactive Protein 19.5 H 21.0 H Total Protein 5.9 L Albumin 3.0 L Globulin 2.9 Albumin/Globulin Ratio 1.0 Procalcitonin 78.9 H 62.7 H Urine Color Yellow Urine Appearance Clear Urine pH 5.0 Ur Specific [place] 1.025 Urine Protein Trace H Urine Glucose (UA) Negative Urine Ketones Negative Urine Occult Blood 2+ H Urine Nitrate Positive H Urine Bilirubin 1+ H Ur Bilirubin Confirm Negative Urine Urobilinogen 0.2 Ur Leukocyte Esterase Trace H Urine RBC 1-5/hpf Urine WBC 5-10/hpf H Ur Squamous Epith Cells 0-1 /hpf Urine Bacteria Moderate (10-30) H Ur Culture Indicated? Specimen cultured 02/23/23 12:25 WBC RBC Hgb Hct MCV MCH MCHC RDW Plt Count Neut % (Auto) Lymph % (Auto) [place] % (Auto) Eos % (Auto) Baso % (Auto) Neut # (Auto) Lymph # (Auto) [place] # (Auto) Eos # (Auto) Baso # (Auto) ESR Sodium Potassium 3.2 L Chloride Carbon Dioxide BUN Creatinine Estimated GFR BUN/Creatinine Ratio Glucose Lactate Calcium Magnesium Total Bilirubin AST ALT Alkaline Phosphatase C-Reactive Protein Total Protein Albumin Globulin Albumin/Globulin Ratio Procalcitonin Urine Color Urine Appearance Urine pH Ur Specific [place] Urine Protein Urine Glucose (UA) Urine Ketones Urine Occult Blood Urine Nitrate Urine Bilirubin Ur Bilirubin Confirm Urine Urobilinogen Ur Leukocyte Esterase Urine RBC Urine WBC Ur Squamous Epith Cells Urine Bacteria Ur Culture Indicated? [facility] Medical History Psoriatic arthritis Chicken pox Colon polyps Hypertension (~1987) Surgical History Anesthesia History of section (~08/02/87) Family History Mother PKD (polycystic kidney disease) Father Peripheral neuropathy Social History marital status: number of children: 1 household members: spouse and children lives independently: Yes occupational status: other (retired) Smoking Status: Never smoker alcohol intake: current substance use type: does not use Assessment & Plan Assessment & Plan narrative: 1. Intra-abdominal infection -improving on IV antibiotics -per surgery medically treat with antibiotics, no surgery for now -advance diet to clears -possible dc tomorrow on oral antibiotics -sepsis ruled out 2. Elevated creatinine -unclear baseline -trend daily -hold blood pressure medications 3. UTI -continue antibiotics as above -follow up cultures 4. Hypokalemia -replete PRN 5. Hyponatremia -improving Quality VTE Deep Vein Thrombosis/Pulmonary Embolism Present on Admission: No
[2023-02-23 16:42] VITALS: BP 152/94; PULSE 96; RESP 18; TEMP 36.6; O2SAT 98
[2023-02-23] MEDS: HEPARIN 5,000 UNIT/ML VIAL 5000 UNIT SUBCUT (21:04)
[2023-02-23] MEDS: ACETAMINOPHEN 325 MG TABLET 650 MG PO (21:05)
[2023-02-24] VITALS: BP 143/99; PULSE 90; RESP 18; TEMP 36.7; O2SAT 99
[2023-02-24 00:32] LABS: Adenovirus F 40/41 Not Detected (Not Detect); Astrovirus Not Detected (Not Detect); Campylobacter Not Detected (Not Detect); Clostridium difficile toxin AB Not Detected (Not Detect); Cryptosporidium Not Detected (Not Detect); Cyclospora cayetanensis Not Detected (Not Detect); Entamoeba histolytica Not Detected (Not Detect); Enteroaggregative E.coli Not Detected (Not Detect); Enteropathogenic E.coli Not Detected (Not Detect); Enterotoxigenic E.coli It/st Not Detected (Not Detect); Giardia lamblia Not Detected (Not Detect); Norovirus GI/GII Not Detected (Not Detect); Plesiomonsa shigelloides Not Detected (Not Detect); Rotavirus A Not Detected (Not Detect); Salmonella Not Detected (Not Detect); Sapovirus Not Detected (Not Detect); Shiga-like toxin-prod E.coli Not Detected (Not Detect); Shigella/Enteroinvasive E.coli Not Detected (Not Detect); Vibrio Not Detected (Not Detect); Vibrio cholerae Not Detected (Not Detect); Yersinia enterocolitica Not Detected (Not Detect)
[2023-02-24] MEDS: PIPERACILLIN/TAZO 3.375 GM in SODIUM CHLORIDE 0.9% 100 ML IV (00:39)
[2023-02-24 04:00] VITALS: BP 158/100; PULSE 91; RESP 18; TEMP 36.8; O2SAT 97
[2023-02-24 05:22] LABS: Add Manual Diff / Slide Review NO; Basophils Absolute Auto 0 /uL (0-100); Basophils Percent Auto 0.3 % (0-2); Eosinophils Absolute Auto 300 /uL (0-450); Eosinophils Percent Auto 4.2 % (2-4); Hematocrit 30.9 % (36-46); Hemoglobin 10.6 g/dL (12.0-16.0); Lymphocytes Absolute Auto 500 /uL (1100-4500); Lymphocytes Percent Auto 6.7 % (25-40); Mean Corpuscular HGB Conc 34.4 % (30-36); Mean Corpuscular Hemoglobin 34.6 PG (26-34); Mean Corpuscular Volume 100.6 fL (80-100); Monocytes Absolute Auto 800 /uL (0-900); Monocytes Percent Auto 10.7 % (3-14); Neutrophils Absolute Auto 5700 /uL (1500-7000); Neutrophils Percent Auto 78.1 % (50-75); Platelet Count 126 X10^3/uL (150-400); Red Blood Cell Count 3.07 X10^6/uL (4.0-5.2); Red Cell Distribution Width 15.5 % (11.6-14.8); White Blood Cell Count 7.3 X10^3/uL (4.5-11.0)
[2023-02-24 05:42] LABS: Alanine Aminotransferase 17 IU/L (<35); Alkaline Phosphatase 53 U/L (38-126); Aspartate Aminotransferase 42 IU/L (14-36); BUN Creatinine Ratio 27.1 (6-22); Bilirubin Total 0.9 mg/dL (0.2-1.3); Blood Urea Nitrogen 26 mg/dL (7-17); Calcium 8.7 mg/dL (8.4-10.2); Carbon Dioxide 25 mmol/L (22-32); Chloride 101 mmol/L (98-107); Estimated Glomerular Filt Rate > 60 mL/min (>60); Glucose 99 mg/dL (80-110); HEMOLYSIS < 15 (0-50); Magnesium 1.8 mg/dL (1.6-2.3); Potassium 3.3 mmol/L (3.4-5.1); Sodium 132 mmol/L (137-145)
[2023-02-24 05:57] LABS: Procalcitonin 35.5 ng/mL (<0.5)
[2023-02-24 08:00] VITALS: BP 187/122; PULSE 96; RESP 16
[2023-02-24] MEDS: POTASSIUM CHLORIDE 20 MEQ TAB 40 MEQ PO (08:24)
[2023-02-24] MEDS: AMOXICILLIN/CLAV 875/125 MG 1 TAB PO (08:25)
[2023-02-24] MEDS: ACETAMINOPHEN 325 MG TABLET 650 MG PO (08:25)
--- NOTE | 2023-02-24 08:58 | CM.DANOTE ---
Initial DCP Assessment Note Reviewed EMR and team rounds for pt's medical status and anticipated home d/c needs. Met with pt at bedside and introduced self and role. She was found to be up in her recliner, dressed, and ready for d/c home later this morning. Payor: [facility] PCP: Dr. Sanchez Pt is a 67 year-old F who presented to the ED on with lower right quardrant pain, nausea/vomiting/diarrhea. CT Abd/Pelvis demonstrated acute appendicities, a UIT, and inflammatory bowels. She was started on IV ABO's and consultation w/surgery was initiated. Per surgery, pt was started on clear liquids and recommended advancing her diet after resolultion of pt's pain. Plan was to review again in the am on 02/23, switch to oral ABO's and a plan for d/c home, f/u with Dr. Dalal in 6-8 weeks for f/u colonoscopy. Pt states understanding of the plan, expressed feeling much better since time of admit. No further needs indicated for DCP at this time. Pt will d/c home today, spouse will transport. Discharge Planning/Care Management Advanced directive, confirm from FAMILY Start: 02/22/23 18:33 Freq: Q24H Status: Active Protocol: Document 02/22/23 18:33 AKP (Rec: 02/22/23 18:33 AKP [id number]) Advance Directive, confirm on record Time 18:33 Person contacted to bring in tomor Copy received No CM Discharge Assessment Start: 02/24/23 08:55 Freq: Status: Active Protocol: Document 02/24/23 08:55 DPL (Rec: 02/24/23 08:57 DPL [id number]) Discharge Planning Assessment Assigned Machine Egg Washer DANA Pond Advance Directives? Yes: pt recalls poss. have one at home. Advance Directives on File No History Provided By Patient,Medical Record Expected Length of Stay 1 Has Patient been admitted in last 30 No days? Prior Living Arrangements House Household Members spouse,children Type of transporation used prior to Drives own vehicle admit Independent with ADL's Yes Is patient alert and oriented? Yes Comment N/A Caregiver for Another No Comment N/A Comment No anticipated d/c needs identified at this time. Pt knows that she will need to schedule a f/u colonoscopy in 6-[address] Dalal, which she plans to take care of soon after d/c. Barriers to Discharge No Discharge Plan Home Referrals Initiated None needed Whiteboard Updated in Patient Room with Yes name and ext. # of Machine Egg Washer Review Status In Process Please Provide Date Initial DC 02/24/23 Assessment Was Performed
--- NOTE | 2023-02-24 09:01 | PC.NURSE ---
patient eager to d/c home. fully dressed and asking for d/c and iv to be removed. Dr Kevin wrote d/c orders. b/p 187/122. asymptomatic x slight h/a. 325mg tylenol for h/a effective. hospitalist gave verbal to reorder her home meds which include meds for HTN. anticipate d/c home by 1000.
[2023-02-24] MEDS: LOSARTAN 50 MG TABLET 100 MG PO (09:19)
[2023-02-24] MEDS: hydroCHLOROthiazide 25 MG TABLET PO (09:20)
[2023-02-24] MEDS: CELECOXIB 200 MG CAPSULE PO (09:22)
[2023-02-24 09:52] VITALS: BP 160/106; PULSE 86
[2023-02-24] MEDS: atenoloL 50 MG TABLET PO (10:03)
--- NOTE | 2023-02-24 10:19 | PC.NURSE ---
0945: approx 45 min after HTN meds taken, b/p trending down. patient reports i hadnt taken the meds for about 5 days. d/c paperwork reviewed: as Dr Petersen listed as patients PCP and since retired: patient reports i have a new D.O. lined up, i just cant recall her name right now. states she will f/u w/ this doctor's office. left floor w/ Dae, escorted by JIM Weiss. see dc.
--- NOTE | 2023-02-25 20:09 | PM.DS.1 ---
History of Present Illness History of Present Illness Chief complaint: Sent By [facility], R/low ABD pain, vomiting Narrative: Per admitting physician: 67 years old female with history of hypertension, prior , presented to the ER with right lower quadrant abdominal pain, diarrhea and vomiting since Thursday. The patient describes the pain as sharp, constant, moderate, aggravated by movement, relieved by Pepto-Bismol, associated with nausea and vomiting. Denies any hematemesis or melena. Denies any fever. Reports also feeling thirsty and dehydrated. The diarrhea stopped on Thursday but the pain was still present. Allergic to penicillin. In the ER her CT scan of the abdomen shows acute appendicitis with large area of diffuse wall thickening and inflammatory changes of the ascending colon. Concerning for a multifocal inflammatory process. Her initial laboratory shows WBC 15.3, H&H 12.2/35.5, platelets 137, ESR 56, sodium 129, potassium 3, magnesium 1, creatinine 1.23, C-reactive protein 19.5, procalcitonin 78.9, UA consistent with UTI, respiratory viral panel negative, vital signs shows pulse 98, blood pressure 163/93, temperature 99.4, pulse oximeter 98% on room air. Surgery was contacted and recommended IV antibiotics, fluids and we will see her in the morning. Discharge Providers Provider Date of admission: 02/22/23 17:39 Discharge Date: 02/24/23 Primary care physician: Fatemeh Sanchez DO Consults: 02/22/23 17:47 Consult to General Surgery Routine Comment: Consulting Provider: Andree Dalal Reason for consultation: possible appendicitis Discharge provider: Sven Leung MD Summary Hospital Course Discharge Diagnosis: 1. Intra-abdominal infection 2. UTI 3. Hyponatremia 4. Hypokalemia 5. DEEPTI Hospital Course: Ms. Montague was admitted with abdominal pain and found to have an intra-abdominal infection. CT was concerning for possible appendicitis. Surgery was consulted and recommended medical management. She was started on zosyn and improved. On day of discharge her pain was very well controlled and she was tolerating a diet. She was discharged with a planned two week course of antibiotics for her infection. She was recommended to follow up with surgery for colonoscopy. Exam Vital Signs (past 8 hours): Oxygen Delivery Method Room Air Oxygen Flow Rate 0 Narrative Exam Narrative: GEN: no acute distress, comfortable CV: regular rate and rhythm PULM: clear bilaterally ABD: soft, nontender Objective Labs 02/24/23 04:54 02/24/23 04:54 [facility] Medical History Psoriatic arthritis Chicken pox Colon polyps Hypertension (~1987) Surgical History Anesthesia History of section (~08/02/87) Family History Mother PKD (polycystic kidney disease) Father Peripheral neuropathy Social History marital status: number of children: 1 household members: spouse and children lives independently: Yes occupational status: other (retired) Smoking Status: Never smoker alcohol intake: never substance use type: does not use Discharge Plan Discharge Plan Patient Disposition: Home Provider Discharge Comment: Ms. Montague was admitted for abdominal pain. She had an infection in her colon and appendix. She felt better with antibiotics and did not need surgery. She should follow up with her PCP. She is planning to follow up with surgery for a colonoscopy in 6-8 weeks. Nursing Discharge Comment: follow up w/ primary physician w/in 7-10 days of todays date. it is good practice to check your b/p and pulse twice a day for 1 week after todays date, keep a log of these and bring to your appointment. return to ER/call 911 if symptoms that brought you here return. increased pain to lower abdomen that does not resolve w/ rest or medication. fever > 101.9 that does not resolve w/ rest or tylenol or ice packs. it is good practice to take a probiotic while taking the antibiotic. this is available over the counter, or thru certain foods. see handout attached to this discharge. it was a pleasure to be your nurse today, hope you have a great rest of your day and a wonderful eventual trip to [place]! Discharge orders & Medications Prescriptions: New amoxicillin-pot clavulanate 875-125 mg Tablet 1 tab PO BID Qty: 24 0RF Continued hydrochlorothiazide 25 mg tablet See Rx Instructions .ROUTE .COMPLEX Qty: 90 1RF Dose Instruction: TAKE ONE TABLET BY MOUTH ONE TIME DAILY Rx Instructions: TAKE ONE TABLET BY MOUTH ONE TIME DAILY atenolol 50 mg tablet 50 mg PO DAILY Qty: 90 1RF No Action losartan 100 mg tablet 100 mg PO DAILY naltrexone 50 mg tablet 50 mg PO DAILY Follow up/Referrals: Andree Dalal MD [Physician] - 6 Weeks (please call to schedule a follow up for intra-abdominal infection, needs colonoscopy) Fatemeh Sanchez DO [Primary Care Provider] - 2 Weeks (Dr Sanchez is no longer with [facility] you will need to call [phone] to establish a new fire equipment inspector helper please request a appointment within 2 weeks of discharge ) Diet/Activity/Treatments Diet: Regular Visit Report/Discharge Packet Instructions: Acidophilus and Other Probiotics (Alternative Therapy) Stand Alone Forms: Patient Portal/API, Stroke Signs & Symptoms Discharge Data Primary Care Provider: Fatemeh Sanchez Quality VTE Deep Vein Thrombosis/Pulmonary Embolism Present on Admission: No
[2023-02-26 17:36] LABS: ANA Screen, IFA Negative (.)
== END 2023-02-24 10:10 | disposition home or self-care (01) | DRG 394 ==
LOC: ED 16:49 → AC 17:39
PROVIDERS: Admitting Provider Student in an Organized Health Care Education/Training Program; Emergency Provider Emergency Medicine; PCP Family Medicine; Referring Provider Emergency Medicine; Visit Provider Student in an Organized Health Care Education/Training Program
DX: K35.80 Unspecified acute appendicitis (principal); A09 Infectious gastroenteritis and colitis, unspecified; N17.9 Acute kidney failure, unspecified; N39.0 Urinary tract infection, site not specified; E83.42 Hypomagnesemia; E87.6 Hypokalemia; I10 Essential (primary) hypertension; R05.9 Cough, unspecified
CPT/HCPCS: 0241U; 36415; 74177; 80053; 81001; 81003; 83605; 83690; 83735; 84132; 84145; 85025; 85651; 86038; 86140; 87040; 87077; 87086; 87186; 87507; 96374; 96375; 99232; 99284; 99285; J1170; J1644; J1885; J2405; J2543; J3475

== ENCOUNTER 2023-02-25 00:59 | Inpatient (IN) | payer OTHER, MEDICARE, SELFPAY ==
[2023-02-22 18:20] VITALS: BMI 21.2
[2023-02-25] VITALS (17 sets, daily range): BP systolic 143–210; BP diastolic 89–127; PULSE 65–90; RESP 16–20; TEMP 35.9–36.9; O2SAT 93–100; BMI 21.2
--- NOTE | 2023-02-25 01:19 | ED_ITS ---
HPI - Abdominal Pain General Chief Complaint: Abdominal Pain Stated Complaint: appendicitis Time Seen by Provider: 02/25/23 01:11 Source: patient Mode of arrival: Ambulatory History of Present Illness HPI narrative: Patient 67-year-old female presents today with worsening right lower quadrant pain. She was admitted to the hospital February 22 through the . She was diagnosed with appendicitis. She was admitted to the hospital she had some abnormal blood work including leukocytosis of 15 significantly elevated procalcitonin of 78.9 any UTI. She was treated conservatively with IV antibiotics and discharged home yesterday with Augmentin. Pain was ultimately controlled on discharge however when she got home she had increased pain. She is having significant pain now moaning unable to get comfortable. She has had decreased in appetite and intake as well but is afebrile. Related Data Previous Rx's Medication Instructions Recorded hydrochlorothiazide 25 mg tablet See Rx Instructions .Route 09/09/22 .COMPLEX #90 tabs atenolol 50 mg tablet 50 mg PO DAILY #90 tabs 12/15/22 losartan 100 mg tablet 100 mg PO DAILY #90 tabs 12/18/22 naltrexone 50 mg tablet 50 mg PO DAILY #30 tabs 02/02/23 amoxicillin 875 mg-potassium 1 tab PO BID #24 tabs 02/24/23 clavulanate 125 mg tablet sodium,potassium,mag sulfates 17.5 See Rx Instructions PO .COMPLEX 02/24/23 gram-3.13 gram-1.6 gram oral soln #354 mL (Suprep Bowel Prep Kit) Allergies Allergy/AdvReac Type Severity Reaction Status Date / Time Penicillins Allergy Unknown unknown Verified 02/23/23 13:12 Patient History Medical History Psoriatic arthritis Chicken pox Colon polyps Hypertension (~1987) Surgical History Anesthesia History of section (~08/02/87) Family History Mother PKD (polycystic kidney disease) Father Peripheral neuropathy Social History marital status: number of children: 1 household members: spouse and children lives independently: Yes occupational status: other (retired) Smoking Status: Never smoker alcohol intake: current substance use type: does not use Smoking Status: Never smoker alcohol intake frequency: a few times a month Substance Use Type: does not use Exam Initial Vital Signs Initial Vital Signs: Vital Signs Temperature 98.4 F 02/25/23 01:05 Pulse Rate 90 02/25/23 01:05 Respiratory Rate 20 02/25/23 01:05 Blood Pressure 210/127 H 02/25/23 01:05 Pulse Oximetry 97 02/25/23 01:05 Oxygen Delivery Method Room Air 02/25/23 01:05 GENERAL: Alert 67-year-old female appears uncomfortable moaning and HEENT: Head atraumatic,EOMI, pupils reactive, face symmetric, moist mucous membranes CARDIOVASCULAR: Regular rate and rhythm without murmurs, rubs or gallops. RESPIRATORY: Breath sounds equal bilaterally, no wheezes rales or rhonchi. ABDOMEN: Soft, tender right lower quadrant mild guarding no rebound : No CVA tenderness EXTREMITIES: Normal range of motion, no clubbing or edema. Neurovascularly intact NEUROLOGICAL: Alert and oriented x4. Moving all extremities SKIN: Warm, dry, no laceration, no petechiae, no rashes or lesions. Course Orders Ordered: ED Orders 02/25/23 01:20 CBC Auto Diff [Complete Blood Count AUTO DIFF] Stat CMP [Comprehensive Metabolic Panel] Stat CRP [C-Reactive Protein Quant] Stat ESR [Erythrocyte Sedimentation Rate] Stat Lactate (Lactic Acid) Stat Procalcitonin Stat 02/25/23 01:53 CT abdomen pelvis w con Stat 02/25/23 03:59 Education, smoking cessation ONGOING 02/25/23 07:00 Comprehensive Metabolic Panel DAILY Magnesium DAILY 02/26/23 07:00 Comprehensive Metabolic Panel DAILY Magnesium DAILY 02/27/23 07:00 Comprehensive Metabolic Panel DAILY Magnesium DAILY Albuterol (Albuterol 2.5 Mg/3 Ml Neb (Adult)) 2.5 mg INH [id number] PRN PRN Reason: Dyspnea Atenolol (Atenolol 50 Mg Tablet) 50 mg PO DAILY ALEXA Hydralazine HCl (Hydralazine 25 Mg Tablet) 25 mg PO Q6HR PRN PRN Reason: Hypertension Hydromorphone HCl (Hydromorphone 0.5 Mg Inj) 0.5 mg IV Q2H PRN PRN Reason: Pain, Severe (7-10) Sodium Chloride (Normal Saline 0.9%) 1,000 mls @ 150 mls/hr IV CONT ALEXA Sodium Chloride (Normal Saline 0.9%) 1,000 mls @ 100 mls/hr IV CONT ALEXA Levofloxacin (Levaquin) 750 mg in 150 mls @ 100 mls/hr IV Q24H ALEXA Metronidazole (Flagyl) 500 mg in 100 mls @ 100 mls/hr IV Q6H ALEXA Losartan Potassium (Losartan 50 Mg Tablet) 100 mg PO DAILY ALEXA Melatonin (Melatonin 3 Mg Tablet) 9 mg PO BEDTIME PRN PRN Reason: insomnia Naloxone HCl (Naloxone 0.4 Mg/Ml Vial) 0.2 mg IV Q2MIN PRN PRN Reason: Opiate Reversal Ondansetron HCl (Ondansetron 4 Mg/2 Ml Inj) 4 mg IV Q8HR PRN PRN Reason: Nausea And Vomiting Oxycodone HCl (Oxycodone Ir 5 Mg Tablet) 5 mg PO Q3H PRN PRN Reason: Pain, Moderate (4-6) Discontinued Medications Hydromorphone HCl (Hydromorphone 1 Mg Inj) 1 mg IV NOW ONE Stop: 02/25/23 01:54 Last Admin: 02/25/23 01:58 Dose: 1 mg Documented By: VALERIA Sodium Chloride (Normal Saline 0.9%) 1,000 mls @ 1,000 mls/hr IV BOLUS ONE Stop: 02/25/23 02:52 Last Infusion: 02/25/23 02:53 Dose: Infused Documented By: Admin: 02/25/23 01:59 Dose: 1,000 mls/hr Documented By: VALERIA Levofloxacin (Levaquin) 750 mg in 150 mls @ 100 mls/hr IV NOW ONE Stop: 02/25/23 04:52 Last Infusion: 02/25/23 04:50 Dose: 0 mls/hr Documented By: Admin: 02/25/23 04:14 Dose: 100 mls/hr Documented By: VALERIA Metronidazole (Flagyl) 500 mg in 100 mls @ 100 mls/hr IV NOW ONE Stop: 02/25/23 04:22 Last Infusion: 02/25/23 04:49 Dose: Infused Documented By: Admin: 02/25/23 03:43 Dose: 100 mls/hr Documented By: VALERIA Sodium Chloride (Normal Saline 0.9%) 500 mls @ 500 mls/hr IV BOLUS ONE Stop: 02/25/23 04:58 Metronidazole (Flagyl) 500 mg in 100 mls @ 100 mls/hr IV Q6H [facility] Morphine Sulfate (Morphine 2 Mg/Ml Inj) 2 mg IV NOW ONE Stop: 02/25/23 01:21 Last Admin: 02/25/23 01:29 Dose: 2 mg Documented By: VALERIA Ondansetron HCl (Ondansetron 4 Mg/2 Ml Inj) 4 mg IV NOW ONE Stop: 02/25/23 01:26 Last Admin: 02/25/23 01:29 Dose: 4 mg Documented By: VALERIA Vital Signs Vital signs: Vital Signs - 8 hr 02/25/23 01:05 02/25/23 01:32 02/25/23 02:00 Temperature 98.4 F Pulse Rate 90 90 83 Respiratory Rate 20 Blood Pressure 210/127 H Pulse Oximetry 97 97 95 Oxygen Delivery Method Room Air 02/25/23 02:01 02/25/23 02:01 02/25/23 02:30 Temperature Pulse Rate 83 86 Respiratory Rate Blood Pressure 172/113 H Pulse Oximetry 95 94 Oxygen Delivery Method 02/25/23 03:00 02/25/23 03:30 02/25/23 04:00 Temperature Pulse Rate 85 81 70 Respiratory Rate 16 Blood Pressure 166/109 H Pulse Oximetry 96 94 95 Oxygen Delivery Method Room Air 02/25/23 04:03 02/25/23 04:03 Temperature Pulse Rate 72 Respiratory Rate Blood Pressure 166/109 H Pulse Oximetry 97 Oxygen Delivery Method MDM - Abdominal Pain Lab Data 02/25/23 01:20 02/25/23 01:20 Labs: Lab Results 02/25/23 Range/Units 01:20 WBC 9.2 (4.5-11.0) X10^3/uL RBC 3.27 L (4.0-5.2) X10^6/uL Hgb 11.1 L (12.0-16.0) g/dL Hct 32.8 L (36-46) % MCV 100.3 H (80-100) fL MCH 34.1 H (26-34) PG MCHC 34.0 (30-36) % RDW 15.5 H (11.6-14.8) % Plt Count 160 (150-400) X10^3/uL Neut % (Auto) 72.3 (50-75) % Lymph % (Auto) 11.9 L (25-40) % [place] % (Auto) 13.0 (3-14) % Eos % (Auto) 2.4 (2-4) % Baso % (Auto) 0.4 (0-2) % Neut # (Auto) 6600 (8331-6646) /uL Lymph # (Auto) 1100 (7966-1377) /uL [place] # (Auto) 1200 H (0-900) /uL Eos # (Auto) 200 (0-450) /uL Baso # (Auto) 0 (0-100) /uL ESR 63 H (0-20) MM/HR Sodium 132 L (137-145) mmol/L Potassium 3.3 L (3.4-5.1) mmol/L Chloride 101 (98-107) mmol/L Carbon Dioxide 24 (22-32) mmol/L BUN 24 H (7-17) mg/dL Creatinine 0.84 (0.52-1.04) mg/dL Estimated GFR > 60 (>60) mL/min BUN/Creatinine Ratio 28.6 H (6-22) Glucose 107 (80-110) mg/dL Lactate 1.4 (0.7-2.1) mmol/L Calcium 9.3 (8.4-10.2) mg/dL Total Bilirubin 0.7 (0.2-1.3) mg/dL AST 47 H (14-36) IU/L ALT 22 (<35) IU/L Alkaline Phosphatase 82 (38-126) U/L C-Reactive Protein 12.3 H (<1.0) mg/dL Total Protein 7.1 (6.3-8.2) g/dL Albumin 3.6 (3.5-5.0) g/dL Globulin 3.5 (1.7-4.1) g/dL Albumin/Globulin Ratio 1.0 (1.0-2.8) Procalcitonin 21.9 H (<0.5) ng/mL Imaging Data CT scan - abdomen/pelvis: Radiologist's Impression: Preliminary report Worsening changes of acute appendicitis. New since the prior study there is discontinuity involving a portion of the appendiceal wall with an associated 1.9 cm fluid collection which is suspected to represent an abscess. Another component of organizing fluid is suspected in between the appendix and right psoas musculature. There is no free air surgical consultation advised. New since the prior study there is expansion of the right psoas muscle with associated mild increased attenuation raises question of intramuscular hematoma. This is not thought to be related to appendicitis. A few curvilinear enhancing vessels are noted within the right psoas musculature. There is no pooling of contrast to suggest active bleeding. Tiny bilateral pleural effusions. MDM Narrative Medical decision making narrative: Patient 59-year-old female presents today with worsening right lower quadrant pain after being discharged yesterday with appendicitis Blood work today does show improvement no leukocytosis, however ESR his increased from 56-63, procalcitonin improving from 78-21.9. Electrolytes are stable mild hypokalemia 3.3 normal creatinine 0.84, lactate 1.4. She Imaging: CT reveals worsening appendicitis with developing abscess and psoas muscle involvement Vitals are reviewed initially is very hypertensive. Given morphine and then Dilaudid for pain control which seemed to help a lot. Dr. Dalal updated patient's symptoms test results recommends and agrees mission with Jodie and Guzman. Dr. Bates accepts patient. Discharge Plan Departure Patient Disposition: Admitted As Inpatient Clinical Impression: Acute appendicitis Qualifiers: Acute appendicitis type: with localized peritonitis Appendicitis gangrene presence: without gangrene Appendicitis perforation presence: without perforation Appendicitis abscess presence: with abscess Qualified Code(s): K 35.33 - Acute appendicitis with perforation, localized peritonitis, and gangrene, with abscess Admit Date/Time: 02/25/23 04:10 Admit Provider: Felipe Russo
[2023-02-25 01:29] LABS: Add Manual Diff / Slide Review NO; Basophils Absolute Auto 0 /uL (0-100); Basophils Percent Auto 0.4 % (0-2); Eosinophils Absolute Auto 200 /uL (0-450); Eosinophils Percent Auto 2.4 % (2-4); Hematocrit 32.8 % (36-46); Hemoglobin 11.1 g/dL (12.0-16.0); Lymphocytes Absolute Auto 1100 /uL (1100-4500); Lymphocytes Percent Auto 11.9 % (25-40); Mean Corpuscular Hemoglobin 34.1 PG (26-34); Mean Corpuscular Volume 100.3 fL (80-100); Monocytes Absolute Auto 1200 /uL (0-900); Neutrophils Absolute Auto 6600 /uL (1500-7000); Neutrophils Percent Auto 72.3 % (50-75); Platelet Count 160 X10^3/uL (150-400); Red Blood Cell Count 3.27 X10^6/uL (4.0-5.2); Red Cell Distribution Width 15.5 % (11.6-14.8); White Blood Cell Count 9.2 X10^3/uL (4.5-11.0)
[2023-02-25] MEDS: ONDANSETRON 4 MG/2 ML INJ IV (01:29)
[2023-02-25] MEDS: MORPHINE 2 MG/ML INJ IV (01:29)
[2023-02-25 01:38] LABS: Lactate (Lactic Acid) 1.4 mmol/L (0.7-2.1)
[2023-02-25 01:42] LABS: Alanine Aminotransferase 22 IU/L (<35); Albumin 3.6 g/dL (3.5-5.0); Alkaline Phosphatase 82 U/L (38-126); Aspartate Aminotransferase 47 IU/L (14-36); BUN Creatinine Ratio 28.6 (6-22); Bilirubin Total 0.7 mg/dL (0.2-1.3); Blood Urea Nitrogen 24 mg/dL (7-17); Calcium 9.3 mg/dL (8.4-10.2); Carbon Dioxide 24 mmol/L (22-32); Chloride 101 mmol/L (98-107); Estimated Glomerular Filt Rate > 60 mL/min (>60); Globulin 3.5 g/dL (1.7-4.1); Glucose 107 mg/dL (80-110); HEMOLYSIS < 15 (0-50); Potassium 3.3 mmol/L (3.4-5.1); Sodium 132 mmol/L (137-145); Total Protein 7.1 g/dL (6.3-8.2)
[2023-02-25 01:50] LABS: Erythrocyte Sedimentation Rate 63 MM/HR (0-20)
--- NOTE | 2023-02-25 01:53 | DI.CT.S_ITS ---
PROCEDURE: CT ABDOMEN PELVIS W CON INDICATIONS: appendicitis ct 02/22 TECHNIQUE: After the administration of intravenous contrast, axial sections acquired from the lung bases to the pubic symphysis. Coronal and sagittal reformats were performed. For radiation dose reduction, the following was used: automated exposure control, adjustment of mA and/or kV according to patient size. COMPARISON: [facility], CT, CT ABDOMEN PELVIS W CON, 02/22/2023, 15:15. FINDINGS: Image quality: Excellent. Lung bases: Trace bilateral pleural effusion is seen.. Heart: Heart size is enlarged, no pericardial effusion. ABDOMEN: Liver: Mild hepatic steatosis is seen, no discrete hepatic lesion. Gallbladder: Gallbladder is within normal limits. Biliary ducts: Unremarkable. Pancreas: Unremarkable. Spleen: Unremarkable. Adrenal Glands: Unremarkable. Kidneys and Ureters: Unremarkable. Stomach and Bowel: There is no bowel obstruction. There is interval worsening of inflammatory changes in right lower quadrant adjacent to the appendix. There is discontinuity involving a portion of appendiceal wall with approximately 1.9 cm fluid collection and show peripheral enhancement series 2, image 55 suggestive of abscess collection. Small amount of fluid is also seen situated between right soleus muscle and inflamed appendix measures up to 2 x 1 cm in size seen on series foot 2 image 55. No other area of abnormal bowel wall thickening is seen. Peritoneum: No abnormal intraperitoneal fluid. No free air. Ventral Wall: No hernias. Abdominal Nodes: No retroperitoneal or mesenteric adenopathy by size criteria. Vessels: Aorta and inferior vena cava are normal in size. PELVIS: Pelvic Organs: Unremarkable. Bladder: Unremarkable. Pelvic Nodes: No enlarged lymph nodes. Miscellaneous: No hernias are seen. Asymmetrically enlarged right psoas muscle is noted with heterogeneously hyperdensity within the muscle concerning for intramuscular hematoma. Myositis cannot be entirely excluded given its proximity to the inflamed appendix. Bones: No suspicious bony lesions. No acute vertebral body compression fracture. IMPRESSION: 1. Worsening of acute appendicitis with suggestion of developing abscess collection adjacent to inflamed appendix measures 1.9 cm in size. Possible early abscess collection also noted situated between appendix and right psoas muscle as above. No peritoneal free air. 2. Asymmetrically enlarged right psoas muscle with internal increased density which may represent a muscular hematoma. Given patient's history and its close proximity to the appendix, myositis cannot be entirely excluded. 3. Trace bilateral pleural effusion. 4. Other findings are not significantly changed from previous study. No significant discrepancies from preliminary reading. Dictated by: Je Fall M.D. on 02/25/2023 at 8:24 Approved by: Je Fall M.D. on 02/25/2023 at 8:47
[2023-02-25 01:55] LABS: Procalcitonin 21.9 ng/mL (<0.5)
[2023-02-25 01:57] LABS: C-Reactive Protein Quant 12.3 mg/dL (<1.0)
[2023-02-25] MEDS: HYDROMORPHONE 1 MG INJ IV (01:58)
[2023-02-25] MEDS: SODIUM CHLORIDE 0.9% 1,000 ML 1000 ML IV (01:59)
[2023-02-25] MEDS: metroNIDAZOLE 500 MG/100 ML PIGGYBACK 100 MG IV ×4 (03:43→21:54)
[2023-02-25] MEDS: levoFLOXacin 750 MG/150 ML PIGGYBACK 100 MG IV (04:14)
[2023-02-25] MEDS: SODIUM CHLORIDE 0.9% 500 ML IV (05:33)
--- NOTE | 2023-02-25 05:45 | PC.NURSE ---
Pt. admitted to room 218 @ 0440. Levaquin IV 750 mg. still infusing when patient arrived to the floor. Oriented to her room, call light TV & bed controls. Pt. declined to secured her home medications in the night pharmacy & wants to keep it at the bedside. States I promise I will not take my own medications. Will report to day RN.
--- NOTE | 2023-02-25 06:12 | PM.HP.1 ---
History of Present Illness History of Present Illness Chief complaint: appendicitis Narrative: 67 years old female with history of hypertension presented to the ER with worsening right lower quadrant abdominal pain. She was admitted in the hospital from February 22 and discharged on for appendicitis. During her hospitalization she was evaluated by surgery and sent home with Augmentin. Since she has been home her pain is getting worse. She also reports some watery diarrhea and unable to eat anything in the last 2 days except liquids. Denies any other symptoms. Her laboratory shows WBC 9.2, H&H 11.1/32.8, sodium 132, potassium 3.3, creatinine 0.84, lactate 1.4, C-reactive protein 12.3, procalcitonin 21.9. Her preliminary abdominal CT scan shows appendicitis with phlegmon and possible abscess. In the ER the patient was started on Levaquin and Flagyl. Surgery was consulted and will see the patient in the morning. [facility] Medical History Psoriatic arthritis Chicken pox Colon polyps Hypertension (~1987) Surgical History Anesthesia History of section (~08/02/87) Family History Mother PKD (polycystic kidney disease) Father Peripheral neuropathy Social History marital status: number of children: 1 household members: spouse and children lives independently: Yes occupational status: other (retired) Smoking Status: Never smoker alcohol intake: never substance use type: does not use Meds Home Medications and Allergies Home Medications Medication Instructions Recorded Confirmed Type hydrochlorothiazide 25 mg tablet See Rx Instructions .Route 09/09/22 02/24/23 Rx .COMPLEX #90 tabs atenolol 50 mg tablet 50 mg PO DAILY #90 tabs 12/15/22 02/24/23 Rx losartan 100 mg tablet 100 mg PO DAILY #90 tabs 12/18/22 02/24/23 Rx naltrexone 50 mg tablet 50 mg PO DAILY #30 tabs 02/02/23 02/24/23 Rx amoxicillin 875 mg-potassium 1 tab PO BID #24 tabs 02/24/23 02/24/23 Rx clavulanate 125 mg tablet sodium,potassium,mag sulfates 17.5 See Rx Instructions PO .COMPLEX 02/24/23 Rx gram-3.13 gram-1.6 gram oral soln #354 mL (Suprep Bowel Prep Kit) Allergies Allergy/AdvReac Type Severity Reaction Status Date / Time Penicillins Allergy Unknown unknown Verified 02/23/23 13:12 Review of Systems Review of Systems ROS: Yes All systems reviewed with the patient and are negative except as otherwise documented Constitutional Constitutional: Reports as per HPI and Reports system reviewed and no additional complaints, except as documented Eyes Eyes: Reports as per HPI and Reports system reviewed and no additional complaints, except as documented ENT Ears, Nose, Mouth, and Throat: Yes as per HPI and Yes system reviewed and no additional complaints, except as documented Cardiovascular Cardiovascular: Reports system reviewed and no additional complaints, except as documented Respiratory Respiratory: Reports system reviewed and no additional complaints, except as documented Gastrointestinal Gastrointestinal: Reports system reviewed and no additional complaints, except as documented Genitourinary Genitourinary: Reports system reviewed and no additional complaints, except as documented Musculoskeletal Musculoskeletal: Reports system reviewed and no additional complaints, except as documented, Reports abnormal gait and Reports numbness Neurologic Neurologic: Reports system reviewed and no additional complaints, except as documented, Reports abnormal gait, Reports confusion and Reports numbness Psychiatric Psychiatric: Reports system reviewed and no additional complaints, except as documented and Reports confusion Exam Vital Signs (past 8 hours): - 02/25/23 01:05 02/25/23 01:32 02/25/23 02:00 Temperature 98.4 F Pulse Rate 90 90 83 Respiratory Rate 20 Blood Pressure 210/127 H Pulse Oximetry 97 97 95 Oxygen Delivery Method Room Air Oxygen Flow Rate 02/25/23 02:01 02/25/23 02:01 02/25/23 02:30 Temperature Pulse Rate 83 86 Respiratory Rate Blood Pressure 172/113 H Pulse Oximetry 95 94 Oxygen Delivery Method Oxygen Flow Rate 02/25/23 03:00 02/25/23 03:30 02/25/23 04:00 Temperature Pulse Rate 85 81 70 Respiratory Rate 16 Blood Pressure 166/109 H Pulse Oximetry 96 94 95 Oxygen Delivery Method Room Air Oxygen Flow Rate 02/25/23 04:03 02/25/23 04:03 02/25/23 04:30 Temperature Pulse Rate 72 Respiratory Rate Blood Pressure 166/109 H 164/103 H Pulse Oximetry 97 Oxygen Delivery Method Oxygen Flow Rate 02/25/23 04:30 02/25/23 05:11 Temperature 97.6 F Pulse Rate 67 66 Respiratory Rate 16 17 Blood Pressure 143/97 H Pulse Oximetry 93 100 Oxygen Delivery Method Oxygen Flow Rate 0 Oxygen Delivery Method Room Air Oxygen Flow Rate 0 Const General: cooperative, comfortable and well developed Orientation: alert and oriented x3 HENMT Head: normal to inspection, normocephalic and atraumatic Face and sinus: normal facial exam Mouth: oral mucosae normal and moist mucous membranes Throat: posterior oropharynx normal Eyes General: appearance normal, both eyes and all related structures Pupils: PERRL EOM: EOM intact bilaterally Neck Neck: normal visual inspection and full ROM Chest Chest: normal inspection of the chest Resp Effort & Inspection: normal respiratory effort and able to speak in complete sentences Auscultation: clear to auscultation bilaterally Cardio Palpation: normal PMI Rate: regular rate Rhythm: regular rhythm Heart Sounds: S1 normal and S2 normal GI Inspection: normal to inspection Palpation: soft and no hepatosplenomegaly Auscultation: normal bowel sounds Skin General: no rashes or lesions noted Lesions: no lesions Rashes: no rashes Trauma: no lacerations or abrasions Neuro General: patient alert, patient awake, patient oriented x3 and no focal motor deficits Cranial Nerves: CN's II-XI intact bilaterally Cognition: normal cognition Speech: speech normal Gait: normal gait Motor: muscle tone normal throughout Sensory Exam: no sensory deficits noted Extrem General: full ROM and no calf tenderness Psych Appearance: grossly normal Mental Status: mental status grossly normal Speech and Movement: speech and movement normal Objective Labs 02/25/23 01:20 02/25/23 01:20 Labs: Laboratory Results - last 24 hr 02/25/23 01:20 WBC 9.2 RBC 3.27 L Hgb 11.1 L Hct 32.8 L MCV 100.3 H MCH 34.1 H MCHC 34.0 RDW 15.5 H Plt Count 160 Neut % (Auto) 72.3 Lymph % (Auto) 11.9 L [place] % (Auto) 13.0 Eos % (Auto) 2.4 Baso % (Auto) 0.4 Neut # (Auto) 6600 Lymph # (Auto) 1100 [place] # (Auto) 1200 H Eos # (Auto) 200 Baso # (Auto) 0 ESR 63 H Sodium 132 L Potassium 3.3 L Chloride 101 Carbon Dioxide 24 BUN 24 H Creatinine 0.84 Estimated GFR > 60 BUN/Creatinine Ratio 28.6 H Glucose 107 Lactate 1.4 Calcium 9.3 Total Bilirubin 0.7 AST 47 H ALT 22 Alkaline Phosphatase 82 C-Reactive Protein 12.3 H Total Protein 7.1 Albumin 3.6 Globulin 3.5 Albumin/Globulin Ratio 1.0 Procalcitonin 21.9 H Assessment & Plan Assessment and plan (1) Acute appendicitis: Qualifiers: Acute appendicitis type: with localized peritonitis Appendicitis abscess presence: with abscess Appendicitis gangrene presence: without gangrene Appendicitis perforation presence: without perforation Qualified Code(s): K35.33 - Acute appendicitis with perforation, localized peritonitis, and gangrene, with abscess Status: Acute Plan: Keep the patient n.p.o. IV antibiotics including Levaquin and Flagyl Pain medications and Tylenol for fever as needed Antiemetics as needed Surgical consult (2) Hypokalemia: Status: Acute Plan: Replace and monitor (3) Hypertension: Qualifiers: Hypertension type: essential hypertension Qualified Code(s): I10 - Essential (primary) hypertension Status: Chronic Plan: Hold losartan and hydrochlorothiazide Restart atenolol Time Spent With Patient Time with patient: 50 to 69 minutes with 50% spent counseling/coordinating care Quality VTE Deep Vein Thrombosis/Pulmonary Embolism Present on Admission: No MIPS - Admit I confirm the patient?s Advance Care Plan is present, Code status is documented, Surrogate decision maker is in patient?s record [If Yes, STOP here]: Yes MIPS - Meds 'Current medications' to include all prescriptions, [id number] products, herbals, cannabis/cannabidiol products, and vitamin/mineral/dietary (nutritional) supplements. I have utilized all available resources to obtain, update, or review the patient?s current medications. [If Yes, STOP here]: Yes
[2023-02-25] MEDS: SODIUM CHLORIDE 0.9% 1,000 ML 150 ML IV (06:28)
[2023-02-25 08:49] LABS: Alanine Aminotransferase 21 IU/L (<35); Albumin 3.2 g/dL (3.5-5.0); Alkaline Phosphatase 65 U/L (38-126); Aspartate Aminotransferase 38 IU/L (14-36); BUN Creatinine Ratio 27.1 (6-22); Bilirubin Total 0.5 mg/dL (0.2-1.3); Blood Urea Nitrogen 19 mg/dL (7-17); Calcium 8.7 mg/dL (8.4-10.2); Carbon Dioxide 24 mmol/L (22-32); Chloride 103 mmol/L (98-107); Estimated Glomerular Filt Rate > 60 mL/min (>60); Globulin 3.1 g/dL (1.7-4.1); Glucose 100 mg/dL (80-110); HEMOLYSIS 20 (0-50); Magnesium 1.3 mg/dL (1.6-2.3); Potassium 3.9 mmol/L (3.4-5.1); Sodium 132 mmol/L (137-145); Total Protein 6.3 g/dL (6.3-8.2)
--- NOTE | 2023-02-25 09:22 | CM.DANOTE ---
Initial DCP Assessment Note Pt is a 67 yo female, resident of [place], readmit from home with worsening abd pain. Patient left yesterday after being treated conservatively with IV abx for appendicitis. Failed outpatient treatment. Payor: [facility] PCP: Dr. Sanchez Reviewed chart, met w/patient this morning to introduce self and role. Patient lives w/spouse, independent in all aspects. Patient plans to return home upon discharge and denies needs from this MUSIC INTERN. No barriers identified at this time to patient's safe discharge home w/family to assist; close outpatient f/u recommended. CM team will plan to follow closely in case any DC needs or concerns arise. DANA Hay Discharge Planning/Care Management CM Discharge Assessment Start: 02/25/23 09:16 Freq: Status: Active Protocol: Document 02/25/23 09:16 KIRK (Rec: 02/25/23 09:22 KIRK [id number]) Discharge Planning Assessment Assigned Voting Machine Repairer DANA Burrows DPOA/Assigned Designee Name Dae Sullivan, spouse Contact Information [phone] Advance Directives? Yes: pt recalls poss. have one at home. Advance Directives on File No History Provided By Patient,Medical Record Has Patient been admitted in last 30 Yes days? Comment Patient here 10.29-10.31, came back with severe pain Prior Living Arrangements House Household Members spouse,children Type of transporation used prior to Drives own vehicle admit Independent with ADL's Yes Is patient alert and oriented? Yes Patient/Family Preference OP PT Therapy Barriers to Discharge No Discharge Plan Home Transportation Arrangement Spouse Referrals Initiated None needed Whiteboard Updated in Patient Room with Yes name and ext. # of Voting Machine Repairer
[2023-02-25] MEDS: LOSARTAN 50 MG TABLET 100 MG PO (09:47)
[2023-02-25] MEDS: atenoloL 50 MG TABLET PO (09:48)
--- NOTE | 2023-02-25 10:27 | PM.PN.1 ---
Subjective Subjective Date Patient Seen: 02/25/23 Time Patient Seen: 10:27 Interval history: Reports taking no pain meds at home, including celebrex, awoke during the night to severe RLQ pain. Repeat CT scan to my read has overall improvement with matured small abscesses previously there as fluid in the phelgmon. Thickening of right colon and TI are markedly improved. Exam Vital Signs (past 8 hours): - 02/25/23 02:30 02/25/23 03:00 02/25/23 03:30 Temperature Pulse Rate 86 85 81 Respiratory Rate Blood Pressure Pulse Oximetry 94 96 94 Oxygen Delivery Method Room Air Oxygen Flow Rate 02/25/23 04:00 02/25/23 04:03 02/25/23 04:03 Temperature Pulse Rate 70 72 Respiratory Rate 16 Blood Pressure 166/109 H 166/109 H Pulse Oximetry 95 97 Oxygen Delivery Method Oxygen Flow Rate 02/25/23 04:30 02/25/23 04:30 02/25/23 05:11 Temperature 97.6 F Pulse Rate 67 66 Respiratory Rate 16 17 Blood Pressure 164/103 H 143/97 H Pulse Oximetry 93 100 Oxygen Delivery Method Oxygen Flow Rate 0 02/25/23 09:47 Temperature Pulse Rate 66 Respiratory Rate Blood Pressure 143/97 H Pulse Oximetry Oxygen Delivery Method Oxygen Flow Rate Oxygen Delivery Method Room Air Oxygen Flow Rate 0 Const General: cooperative and comfortable Nutritional Appearance: average body habitus Other: Sitting on side of bed, hungry. [facility] Head: normocephalic and atraumatic Eyes Sclera: normal sclerae Neck Neck: trachea midline Chest Chest: normal inspection of the chest Resp Effort & Inspection: normal respiratory effort and able to speak in complete sentences Cardio Rate: regular rate Rhythm: regular rhythm GI Palpation: soft and tender (RLQ tender to palpation, no acute abdomin) Skin General: turgor normal Neuro General: patient alert, patient awake and patient oriented x3 Cognition: normal cognition Psych Mental Status: mental status grossly normal Judgment: judgment good Objective Labs 02/25/23 01:20 02/25/23 08:15 Labs: Laboratory Results - last 24 hr 02/25/23 02/25/23 01:20 08:15 WBC 9.2 RBC 3.27 L Hgb 11.1 L Hct 32.8 L MCV 100.3 H MCH 34.1 H MCHC 34.0 RDW 15.5 H Plt Count 160 Neut % (Auto) 72.3 Lymph % (Auto) 11.9 L [place] % (Auto) 13.0 Eos % (Auto) 2.4 Baso % (Auto) 0.4 Neut # (Auto) 6600 Lymph # (Auto) 1100 [place] # (Auto) 1200 H Eos # (Auto) 200 Baso # (Auto) 0 ESR 63 H Sodium 132 L 132 L Potassium 3.3 L 3.9 Chloride 101 103 Carbon Dioxide 24 24 BUN 24 H 19 H Creatinine 0.84 0.70 Estimated GFR > 60 > 60 BUN/Creatinine Ratio 28.6 H 27.1 H Glucose 107 100 Lactate 1.4 Calcium 9.3 8.7 Magnesium 1.3 L Total Bilirubin 0.7 0.5 AST 47 H 38 H ALT 22 21 Alkaline Phosphatase 82 65 C-Reactive Protein 12.3 H Total Protein 7.1 6.3 Albumin 3.6 3.2 L Globulin 3.5 3.1 Albumin/Globulin Ratio 1.0 1.0 Procalcitonin 21.9 H [facility] Medical History Psoriatic arthritis Chicken pox Colon polyps Hypertension (~1987) Surgical History Anesthesia History of section (~08/02/87) Family History Mother PKD (polycystic kidney disease) Father Peripheral neuropathy Social History marital status: number of children: 1 household members: spouse and children lives independently: Yes occupational status: other (retired) Smoking Status: Never smoker alcohol intake: never substance use type: does not use Assessment & Plan Assessment & Plan narrative: Reviewed the course of medical management of appendicitis. In her case, the second CT clarifies a ruptured appendicitis and not inflammatory bowel disease with associated appendicitis. My recommendations with a change to cipro and flagyl with a 10 day course. Interval appendectomy at 6-8 weeks is optional. It is also reasonable to move forward with lap appy with the risk of staple line leak and/or cecectomy slightly higher. Plan: Continue with IV antibiotics and restart diet. NPO after midnight for review in the morning with Dr. Longo. General surgery to assume primary care and medicine can sign off. Time Spent With Patient Time with patient: 30 to 49 minutes with 50% spent counseling/coordinating care Quality VTE Deep Vein Thrombosis/Pulmonary Embolism Present on Admission: No
[2023-02-25] MEDS: SODIUM CHLORIDE 0.9% 1,000 ML 100 ML IV ×2 (13:48→22:23)
[2023-02-25] MEDS: MAGNESIUM CHLORIDE 64 MG TABLET 128 MG PO ×2 (14:38→22:00)
--- NOTE | 2023-02-25 15:41 | P.PN_ITS ---
Subjective Subjective Date Patient Seen: 02/25/23 Time Patient Seen: 08:00 Interval history: Her pain appears well controlled currently. Exam Vital Signs (past 8 hours): - 02/25/23 09:47 02/25/23 12:00 Temperature 96.6 F L Pulse Rate 66 65 Respiratory Rate 17 Blood Pressure 143/97 H 149/90 H Pulse Oximetry 100 Oxygen Delivery Method Room Air Oxygen Flow Rate 0 Narrative Exam Narrative: GEN: no acute distress, comfortable Objective Labs 02/25/23 01:20 02/25/23 08:15 Labs: Laboratory Results - last 24 hr 02/25/23 02/25/23 01:20 08:15 WBC 9.2 RBC 3.27 L Hgb 11.1 L Hct 32.8 L MCV 100.3 H MCH 34.1 H MCHC 34.0 RDW 15.5 H Plt Count 160 Neut % (Auto) 72.3 Lymph % (Auto) 11.9 L [place] % (Auto) 13.0 Eos % (Auto) 2.4 Baso % (Auto) 0.4 Neut # (Auto) 6600 Lymph # (Auto) 1100 [place] # (Auto) 1200 H Eos # (Auto) 200 Baso # (Auto) 0 ESR 63 H Sodium 132 L 132 L Potassium 3.3 L 3.9 Chloride 101 103 Carbon Dioxide 24 24 BUN 24 H 19 H Creatinine 0.84 0.70 Estimated GFR > 60 > 60 BUN/Creatinine Ratio 28.6 H 27.1 H Glucose 107 100 Lactate 1.4 Calcium 9.3 8.7 Magnesium 1.3 L Total Bilirubin 0.7 0.5 AST 47 H 38 H ALT 22 21 Alkaline Phosphatase 82 65 C-Reactive Protein 12.3 H Total Protein 7.1 6.3 Albumin 3.6 3.2 L Globulin 3.5 3.1 Albumin/Globulin Ratio 1.0 1.0 Procalcitonin 21.9 H PFSH Medical History Psoriatic arthritis Chicken pox Colon polyps Hypertension (~1987) Surgical History Anesthesia History of section (~08/02/87) Family History Mother PKD (polycystic kidney disease) Father Peripheral neuropathy Social History marital status: number of children: 1 household members: spouse and children lives independently: Yes occupational status: other (retired) Smoking Status: Never smoker alcohol intake: never substance use type: does not use Assessment & Plan Assessment & Plan narrative: 1. Acute appendicitis -continue antibiotics for surgery -medicine will sign off and general surgery has agreed to take primary care of the patient Quality VTE Deep Vein Thrombosis/Pulmonary Embolism Present on Admission: No
[2023-02-25] MEDS: CELECOXIB 200 MG CAPSULE PO (21:54)
[2023-02-25] MEDS: HYDRALAZINE 25 MG TABLET PO (22:46)
[2023-02-26] VITALS (19 sets, daily range): BP systolic 110–185; BP diastolic 68–127; PULSE 69–90; RESP 12–20; TEMP 36.4–37.4; O2SAT 94–100; BMI 21.2
--- NOTE | 2023-02-26 | PATH_ITS ---
[facility] Accession Number: [id number] No. of containers..01 Tissue . 01 Material submitted: . appendix - APPENDIX . 01 Diagnosis: Vermiform Appendix, Cecum, and Proximal Ileum, Ileocecetomy: Acute suppurative transmural appendicitis and periappendicitis with perforation. Three benign lymph nodes present. Negative for dysplasia and neoplasia. MRV 03/05/2023 1733 Local . 01 Comment: Logging Worker sections of the appendix are also reviewed by Dr. Pineda Johnston, who concurs with the given interpretation. . 01 Electronically signed: . Andree Dodd MD, Pathologist NPI- [id number] . 01 Gross description: . The specimen is received in formalin labeled with the patient's name, , and appendix, and consists of an ileocecectomy specimen with the portion of ileum measuring 7.5 cm in length by 1.7 cm in diameter attached to a fragment of cecum measuring 6.5 cm in length by 3.5 cm in diameter. A congested, grossly disrupted appendix is attached to the cecum measuring 5.5 cm in length by 1.2 cm in average diameter. . The ileal margin is inked blue, the cecal margin is inked black, and the mesenteric margin is inked green. The serosa of the cecum is diffusely micronodular across an area measuring approximately 3.5 cm in greatest dimension, and this area is inked orange. The lumen contains a small amount of green mucoid material, and the mucosa is gatica and velvety with no polyps or lesions identified. The appendiceal orifice is most unremarkable. The abdalla average 0.4 cm thick with no diverticula identified. . The appendix has congested, roughened serosa with an area of full thickness defect measuring 0.9 cm in greatest dimension. Sectioning reveals a patent lumnen averaging 0.2 cm in diameter filled with gatica semi-solid material. No distinct lesions are grossly identified. . Palpation reveals four gatica lymph node candidates ranging from 0.2 to 0.3 cm in greatest dimension. . Logging Worker sections are submitted as follows: A1: Logging Worker margins en face. A2: Nodular serosa. A3: Ileocecal valve. A4: Unremarkable full thickness sections. A5: One-half of bisected appendix tip and area of defect. A6: Additional corss-section of appendix and perpendicular appendiceal orifice to cecum. A7: Four intact lymph node candidates. ([id number]) . Additional transections of appendix are submitted in cassettes A8-A9. ([id number]) /ALMA 03/04/2023 0536 Local . 01 Pathologist provided ICD-10: K35.80 . 01 CPT . 413790 Specimen Comment: A courtesy copy of this report has been sent to [phone] Performed at: 01 [facility] [address] [place] [address], [place], [place] [id number] MD Aristeo Johnston MD Phone: [phone]
[2023-02-26] MEDS: OXYCODONE IR 5 MG TABLET PO ×3 (01:36→20:49)
[2023-02-26] MEDS: metroNIDAZOLE 500 MG/100 ML PIGGYBACK 100 MG IV ×4 (04:50→22:46)
[2023-02-26] MEDS: HYDRALAZINE 25 MG TABLET PO (05:15)
[2023-02-26] MEDS: METOPROLOL TARTRATE 5 MG/5 ML INJ IV (06:31)
[2023-02-26 06:43] LABS: Add Manual Diff / Slide Review NO; Basophils Absolute Auto 0 /uL (0-100); Basophils Percent Auto 0.4 % (0-2); Eosinophils Absolute Auto 100 /uL (0-450); Eosinophils Percent Auto 0.7 % (2-4); Hematocrit 28.4 % (36-46); Hemoglobin 9.9 g/dL (12.0-16.0); Lymphocytes Absolute Auto 1200 /uL (1100-4500); Lymphocytes Percent Auto 12.4 % (25-40); Mean Corpuscular HGB Conc 34.8 % (30-36); Mean Corpuscular Hemoglobin 34.6 PG (26-34); Mean Corpuscular Volume 99.4 fL (80-100); Monocytes Absolute Auto 1300 /uL (0-900); Monocytes Percent Auto 13.7 % (3-14); Neutrophils Absolute Auto 6800 /uL (1500-7000); Neutrophils Percent Auto 72.8 % (50-75); Platelet Count 171 X10^3/uL (150-400); Red Blood Cell Count 2.86 X10^6/uL (4.0-5.2); Red Cell Distribution Width 15.5 % (11.6-14.8); White Blood Cell Count 9.4 X10^3/uL (4.5-11.0)
[2023-02-26] MEDS: levoFLOXacin 750 MG/150 ML PIGGYBACK 100 MG IV (06:43)
[2023-02-26 06:59] LABS: Alanine Aminotransferase 18 IU/L (<35); Albumin 3.1 g/dL (3.5-5.0); Alkaline Phosphatase 68 U/L (38-126); Aspartate Aminotransferase 36 IU/L (14-36); BUN Creatinine Ratio 19.4 (6-22); Bilirubin Total 0.5 mg/dL (0.2-1.3); Blood Urea Nitrogen 13 mg/dL (7-17); Calcium 8.6 mg/dL (8.4-10.2); Carbon Dioxide 21 mmol/L (22-32); Chloride 103 mmol/L (98-107); Estimated Glomerular Filt Rate > 60 mL/min (>60); Glucose 99 mg/dL (80-110); HEMOLYSIS < 15 (0-50); Magnesium 1.2 mg/dL (1.6-2.3); Potassium 3.3 mmol/L (3.4-5.1); Sodium 130 mmol/L (137-145); Total Protein 6.1 g/dL (6.3-8.2)
--- NOTE | 2023-02-26 07:33 | P.PN_ITS ---
Subjective Subjective Interval history: Patient NPO for surgery today. BP high so labetalol PRN IV added. She is eager to be out of pain. Exam Vital Signs (past 8 hours): 02/25/23 23:35 02/26/23 00:00 02/26/23 05:15 Temperature 98.5 F Pulse Rate 89 89 88 Respiratory Rate 16 Blood Pressure 158/89 H 163/100 H 182/112 H Pulse Oximetry 94 Oxygen Flow Rate 0 02/26/23 05:45 02/26/23 06:00 Temperature 98.4 F Pulse Rate 90 90 Respiratory Rate 16 Blood Pressure 158/125 H 185/125 H Pulse Oximetry 95 Oxygen Flow Rate 0 Oxygen Delivery Method Room Air Oxygen Flow Rate 0 Narrative Exam Narrative: GEN: no acute distress CV: regular rate and rhythm PULM: clear bilaterally ABD: soft, mild tenderness rlq, no rebound/guarding EXT; warm and well perfused with no edema Objective Labs 02/26/23 06:28 02/26/23 06:28 Labs: Laboratory Results - last 24 hr 02/25/23 02/26/23 08:15 06:28 WBC 9.4 RBC 2.86 L Hgb 9.9 L Hct 28.4 L MCV 99.4 MCH 34.6 H MCHC 34.8 RDW 15.5 H Plt Count 171 Neut % (Auto) 72.8 Lymph % (Auto) 12.4 L [place] % (Auto) 13.7 Eos % (Auto) 0.7 L Baso % (Auto) 0.4 Neut # (Auto) 6800 Lymph # (Auto) 1200 [place] # (Auto) 1300 H Eos # (Auto) 100 Baso # (Auto) 0 Sodium 132 L 130 L Potassium 3.9 3.3 L Chloride 103 103 Carbon Dioxide 24 21 L BUN 19 H 13 Creatinine 0.70 0.67 Estimated GFR > 60 > 60 BUN/Creatinine Ratio 27.1 H 19.4 Glucose 100 99 Calcium 8.7 8.6 Magnesium 1.3 L 1.2 L Total Bilirubin 0.5 0.5 AST 38 H 36 ALT 21 18 Alkaline Phosphatase 65 68 Total Protein 6.3 6.1 L Albumin 3.2 L 3.1 L Globulin 3.1 3.0 Albumin/Globulin Ratio 1.0 1.0 PFSH Medical History Psoriatic arthritis Chicken pox Colon polyps Hypertension (~1987) Surgical History Anesthesia History of section (~08/02/87) Family History Mother PKD (polycystic kidney disease) Father Peripheral neuropathy Social History marital status: number of children: 1 household members: spouse and children lives independently: Yes occupational status: other (retired) Smoking Status: Never smoker alcohol intake: never substance use type: does not use Assessment & Plan Assessment & Plan narrative: 1. Acute appendicitis -NPO for surgery 02/26, failed treatment with abx alone -gen surg following -continue levaquin/flagyl 2. DEEPTI, resolved -Cr 1.23 on admission -trend daily -Cr now normal 3. UTI -continue antibiotics as above -UCx with E. coli 4. Hypokalemia and hypomagnesemia -replete PRN 5. Mild hyponatremia -monitor Dispo: Home after surgery. Quality VTE Deep Vein Thrombosis/Pulmonary Embolism Present on Admission: No
[2023-02-26] MEDS: LOSARTAN 50 MG TABLET 100 MG PO (07:46)
[2023-02-26] MEDS: atenoloL 50 MG TABLET PO (07:47)
[2023-02-26] MEDS: HYDROMORPHONE 0.5 MG INJ IV ×2 (07:48→18:25)
[2023-02-26] MEDS: POTASSIUM CHLORIDE 20 MEQ TAB 40 MEQ PO (09:15)
[2023-02-26] MEDS: hydroCHLOROthiazide 25 MG TABLET PO (09:16)
[2023-02-26] MEDS: MAGNESIUM SULFATE 4 GM/100 ML PIGGYBACK IV (10:34)
--- NOTE | 2023-02-26 12:25 | P.PN_ITS ---
Subjective Subjective Date Patient Seen: 02/26/23 Time Patient Seen: 12:25 Interval history: Continued abdominal pain with failure to improve after switching to Cipro Flagyl antibiotic therapy yesterday for appendicitis. She requests proceeding with appendectomy. Exam Vital Signs (past 8 hours): - 02/26/23 05:15 02/26/23 05:45 02/26/23 06:00 Temperature 98.4 F Pulse Rate 88 90 90 Respiratory Rate 16 Blood Pressure 182/112 H 158/125 H 185/125 H Pulse Oximetry 95 Oxygen Flow Rate 0 02/26/23 07:46 02/26/23 08:17 02/26/23 08:36 Temperature 98.3 F 97.5 F L Pulse Rate 90 81 Respiratory Rate 16 Blood Pressure 175/124 H 174/127 H 130/87 Pulse Oximetry 98 Oxygen Flow Rate 0 02/26/23 12:00 Temperature 97.6 F Pulse Rate 83 Respiratory Rate 16 Blood Pressure 136/85 Pulse Oximetry 98 Oxygen Flow Rate 0 Oxygen Delivery Method Room Air Oxygen Flow Rate 0 Narrative Exam Narrative: General adult woman alert oriented no acute distress Abdomen tender right lower quadrant. Objective Labs 02/26/23 06:28 02/26/23 06:28 Labs: Laboratory Results - last 24 hr 02/26/23 06:28 WBC 9.4 RBC 2.86 L Hgb 9.9 L Hct 28.4 L MCV 99.4 MCH 34.6 H MCHC 34.8 RDW 15.5 H Plt Count 171 Neut % (Auto) 72.8 Lymph % (Auto) 12.4 L [place] % (Auto) 13.7 Eos % (Auto) 0.7 L Baso % (Auto) 0.4 Neut # (Auto) 6800 Lymph # (Auto) 1200 [place] # (Auto) 1300 H Eos # (Auto) 100 Baso # (Auto) 0 Sodium 130 L Potassium 3.3 L Chloride 103 Carbon Dioxide 21 L BUN 13 Creatinine 0.67 Estimated GFR > 60 BUN/Creatinine Ratio 19.4 Glucose 99 Calcium 8.6 Magnesium 1.2 L Total Bilirubin 0.5 AST 36 ALT 18 Alkaline Phosphatase 68 Total Protein 6.1 L Albumin 3.1 L Globulin 3.0 Albumin/Globulin Ratio 1.0 PFSH Medical History Psoriatic arthritis Chicken pox Colon polyps Hypertension (~1987) Surgical History Anesthesia History of section (~08/02/87) Family History Mother PKD (polycystic kidney disease) Father Peripheral neuropathy Social History marital status: number of children: 1 household members: spouse and children lives independently: Yes occupational status: other (retired) Smoking Status: Never smoker alcohol intake: never substance use type: does not use Assessment & Plan Assessment & Plan narrative: 67-year-old woman with ruptured appendicitis with abscess failing to improve with medical therapy. Further discussion with the patient and her today in regards to management medical versus surgical. Her preference is to proceed with surgical therapy given her failure to improve and this is reasonable. I explained the increased operative risks in the setting of ruptured appendix with abscess including but not limited to infection damage to surrounding structures conversion open, potential need for ileocecectomy. Questions have been answered she is in agreement with this plan. Quality VTE Deep Vein Thrombosis/Pulmonary Embolism Present on Admission: No
[2023-02-26] MEDS: LACTATED RINGERS 1,000 ML 42 ML IV (13:52)
--- NOTE | 2023-02-26 14:58 | SUR.OPER ---
Supine on padded OR bed, head on pillow, Left arm padded and tucked at side, right arm extended on padded arm board less than 90* adduction, legs uncrossed, safety belt at thigh, tape over blanket over lower legs .
[2023-02-26] MEDS: BUPIVACAINE 0.25% (PF) VIAL 30 ML INJ (15:10)
[2023-02-26] MEDS: BUPIVACAINE LIPOSOME 266 MG/20 ML VIAL INJ (15:36)
--- NOTE | 2023-02-26 16:09 | P.OP_ITS ---
Operative Date/Time/Diagnoses Date of procedure: 02/26/23 Time of procedure: 16:09 Pre-op diagnosis: Acute appendicitis Post-op diagnosis: same Procedure & Clinicians Procedure: Diagnostic laparoscopy Open ileocecectomy Same procedure as scheduled: Yes Indications: 67-year-old woman with perforated appendicitis with abscess failing to improve with antibiotic therapy Surgeon: Ulises Longo Anesthesia Type: General Operative Notes Findings: perforated appendix with necrosis extending to the base. friable cecum abscess of RLQ Specimen(s): other (Ileocecectomy) Estimated Blood Loss (mL): 50 Procedure in detail: Patient was brought to the operating room placed supine on the table. Bilateral lower extremity compression devices were applied. She received Zosyn prior to skin incision. General anesthesia was induced she was intubated with an endotracheal tube. She was prepped and draped in sterile fashion a time-out was performed. An infraumbilical incision was made fascia was incised and the abdomen was entered atraumatically. Pneumoperitoneum was established. Additional working ports were placed in the left lower quadrant and suprapubic position. An inspection of the abdomen was made there was an abscess involving the right lower quadrant and flimsy adhesions. We bluntly explored the abscess on the right lower quadrant it was extremely firm and the appendix was within this and densely adherent to the right pelvic wall and the cecum. There was some spontaneous drainage of purulence and we could not adequately mobilize the cecum or the appendix through a laparoscopic approach. A midline incision was made the abdomen was entered and a self-retaining tractor was placed. The right colon was mobilized along the white line of T[place]t to the hepatic flexure. The cecum without rotated medially and we could clearly see the appendix which was gangrenous and perforated and gangrenous which extended down to its base. The cecum was extremely friable. Window within the mesentery the terminal ileum was made in the small bowel was divided with the layer stapler blue load 75 mm. Window within the mesentery to the right colon was made and the colon was divided similar fashion just distal to the cecum. The mesentery to the specimen was then divided with LigaSure was passed off the field labeled ileocecectomy. We then fashioned a [id number] functional end and anastomosis. Crotch stitch was placed with silk suture and then an enterotomy and a colotomy were made and a 3rd staple load was used to create a common channel. The anastomosis was widely patent and hemostatic and under no tension. The common opening was then closed with a running PDS suture and then imbricated with a 2nd layer of silk suture. The anastomosis was tested it was widely patent and there was no evidence of leak. Abdomen was irrigated with several L of saline 19 [place] Jai drain was placed in the right lower quadrant. The fascia was then closed in a running fashion with PDS suture. Subcutaneous tissue reapproximated with a Vicryl and skin closed with elvis. She tolerated the operation well was anderson sferred to recovery in stable condition. The sponge and instrument count at the end of the operation was correct. Post-operative Condition: stable Disposition: Acute Care
[2023-02-26] MEDS: HYDROMORPHONE 1 MG INJ IV ×3 (16:25→16:38)
[2023-02-26] MEDS: CELECOXIB 200 MG CAPSULE PO (20:47)
[2023-02-27] VITALS (7 sets, daily range): BP systolic 105–144; BP diastolic 66–95; PULSE 68–85; RESP 16–19; TEMP 35.9–37.1; O2SAT 92–99
[2023-02-27] MEDS: metroNIDAZOLE 500 MG/100 ML PIGGYBACK 100 MG IV ×4 (04:57→21:18)
[2023-02-27] MEDS: ACETAMINOPHEN 325 MG TABLET 975 MG PO (04:57)
[2023-02-27 05:13] LABS: Add Manual Diff / Slide Review NO; Basophils Absolute Auto 0 /uL (0-100); Basophils Percent Auto 0.1 % (0-2); Eosinophils Absolute Auto 0 /uL (0-450); Hematocrit 26.8 % (36-46); Hemoglobin 9.4 g/dL (12.0-16.0); Lymphocytes Absolute Auto 700 /uL (1100-4500); Lymphocytes Percent Auto 6.1 % (25-40); Mean Corpuscular Hemoglobin 34.8 PG (26-34); Mean Corpuscular Volume 99.6 fL (80-100); Monocytes Absolute Auto 1300 /uL (0-900); Monocytes Percent Auto 11.5 % (3-14); Neutrophils Absolute Auto 9300 /uL (1500-7000); Neutrophils Percent Auto 82.3 % (50-75); Platelet Count 204 X10^3/uL (150-400); Red Blood Cell Count 2.69 X10^6/uL (4.0-5.2); Red Cell Distribution Width 15.7 % (11.6-14.8); White Blood Cell Count 11.3 X10^3/uL (4.5-11.0)
[2023-02-27 05:28] LABS: Alanine Aminotransferase 18 IU/L (<35); Albumin 2.8 g/dL (3.5-5.0); Alkaline Phosphatase 54 U/L (38-126); Aspartate Aminotransferase 27 IU/L (14-36); BUN Creatinine Ratio 18.8 (6-22); Bilirubin Total 0.4 mg/dL (0.2-1.3); Blood Urea Nitrogen 13 mg/dL (7-17); Calcium 8.6 mg/dL (8.4-10.2); Carbon Dioxide 20 mmol/L (22-32); Chloride 101 mmol/L (98-107); Estimated Glomerular Filt Rate > 60 mL/min (>60); Globulin 2.8 g/dL (1.7-4.1); Glucose 139 mg/dL (80-110); HEMOLYSIS < 15 (0-50); Magnesium 1.6 mg/dL (1.6-2.3); Potassium 4.1 mmol/L (3.4-5.1); Sodium 131 mmol/L (137-145); Total Protein 5.6 g/dL (6.3-8.2)
[2023-02-27] MEDS: levoFLOXacin 750 MG/150 ML PIGGYBACK 100 MG IV (06:35)
[2023-02-27] MEDS: MAGNESIUM CHLORIDE 64 MG TABLET 128 MG PO (08:30)
[2023-02-27] MEDS: CELECOXIB 200 MG CAPSULE PO ×2 (08:30→21:17)
[2023-02-27] MEDS: POTASSIUM CHLORIDE 20 MEQ TAB 40 MEQ PO (08:30)
[2023-02-27] MEDS: LOSARTAN 50 MG TABLET 100 MG PO (08:31)
[2023-02-27] MEDS: hydroCHLOROthiazide 25 MG TABLET PO (08:31)
[2023-02-27] MEDS: atenoloL 50 MG TABLET PO (08:31)
--- NOTE | 2023-02-27 08:58 | P.PN_ITS ---
Subjective Subjective Interval history: Doing well today. Less pain in abdomen. Drain having good output. BP and electrolytes stable. Exam Vital Signs (past 8 hours): - 02/27/23 06:00 02/27/23 08:00 02/27/23 08:31 Temperature 98.8 F 98 F Pulse Rate 68 84 77 Respiratory Rate 16 17 Blood Pressure 144/66 H 124/84 128/84 Pulse Oximetry 96 98 Oxygen Flow Rate 0 Oxygen Delivery Method Nasal Cannula Oxygen Flow Rate 0 Narrative Exam Narrative: GEN: no acute distress CV: regular rate and rhythm PULM: clear bilaterally ABD: soft, mild tenderness rlq, no rebound/guarding EXT; warm and well perfused with no edema Objective Labs 02/27/23 04:56 02/27/23 04:56 Labs: Laboratory Results - last 24 hr 02/27/23 04:56 WBC 11.3 H RBC 2.69 L Hgb 9.4 L Hct 26.8 L MCV 99.6 MCH 34.8 H MCHC 35.0 RDW 15.7 H Plt Count 204 Neut % (Auto) 82.3 H Lymph % (Auto) 6.1 L [place] % (Auto) 11.5 Eos % (Auto) 0.0 L Baso % (Auto) 0.1 Neut # (Auto) 9300 H Lymph # (Auto) 700 L [place] # (Auto) 1300 H Eos # (Auto) 0 Baso # (Auto) 0 Sodium 131 L Potassium 4.1 Chloride 101 Carbon Dioxide 20 L BUN 13 Creatinine 0.69 Estimated GFR > 60 BUN/Creatinine Ratio 18.8 Glucose 139 H Calcium 8.6 Magnesium 1.6 Total Bilirubin 0.4 AST 27 ALT 18 Alkaline Phosphatase 54 Total Protein 5.6 L Albumin 2.8 L Globulin 2.8 Albumin/Globulin Ratio 1.0 [facility] Medical History Psoriatic arthritis Chicken pox Colon polyps Hypertension (~1987) Surgical History Anesthesia History of section (~08/02/87) Family History Mother PKD (polycystic kidney disease) Father Peripheral neuropathy Social History marital status: number of children: 1 household members: spouse and children lives independently: Yes occupational status: other (retired) Smoking Status: Never smoker alcohol intake: never substance use type: does not use Assessment & Plan Assessment & Plan narrative: 1. Acute appendicitis s/p appendectomy and partial cecal resection -underwent surgery 02/26, failed treatment with abx alone -gen surg following -continue levaquin/flagyl -home per gen surg when ready 2. DEEPTI, resolved -Cr 1.23 on admission -trend daily -Cr now normal 3. UTI -continue antibiotics as above -UCx with E. coli 4. Hypokalemia and hypomagnesemia, improving -replete PRN 5. Mild hyponatremia, improving -monitor Dispo: Home per gen surg when ready. Medicine will sign off today. Thank you for allowing us to participate in the care of this patient. Should you have any further questions, do not hesitate to speak with us directly or call us. Quality VTE Deep Vein Thrombosis/Pulmonary Embolism Present on Admission: No
--- NOTE | 2023-02-27 11:39 | CM.DPNOTE ---
DCP Note Patient is now POD1 appendectomy and partial cecal resection. CM team will plan to follow clinical course closely. Medicine has signed off, general surgery following. Plan: Discharge home w/spouse is anticipated once medically stable to do so. JW
--- NOTE | 2023-02-27 17:42 | PM.PNPO.1 ---
Subjective Subjective Date Patient Seen: 02/27/23 Time Patient Seen: 17:43 Interval history: Feels well minimal pain no acute overnight events Exam Vital Signs (past 8 hours): - 02/27/23 12:00 02/27/23 16:00 Temperature 96.8 F L 97.6 F Pulse Rate 83 81 Respiratory Rate 18 19 Blood Pressure 135/94 H 105/73 Pulse Oximetry 96 99 Oxygen Flow Rate 0 0 Oxygen Delivery Method Nasal Cannula Oxygen Flow Rate 0 Narrative Exam Narrative: General adult woman alert oriented no acute distress Abdomen soft appropriately tender to palpation Objective Labs 02/27/23 04:56 02/27/23 04:56 Labs: Laboratory Results - last 24 hr 02/27/23 04:56 WBC 11.3 H RBC 2.69 L Hgb 9.4 L Hct 26.8 L MCV 99.6 MCH 34.8 H MCHC 35.0 RDW 15.7 H Plt Count 204 Neut % (Auto) 82.3 H Lymph % (Auto) 6.1 L [place] % (Auto) 11.5 Eos % (Auto) 0.0 L Baso % (Auto) 0.1 Neut # (Auto) 9300 H Lymph # (Auto) 700 L [place] # (Auto) 1300 H Eos # (Auto) 0 Baso # (Auto) 0 Sodium 131 L Potassium 4.1 Chloride 101 Carbon Dioxide 20 L BUN 13 Creatinine 0.69 Estimated GFR > 60 BUN/Creatinine Ratio 18.8 Glucose 139 H Calcium 8.6 Magnesium 1.6 Total Bilirubin 0.4 AST 27 ALT 18 Alkaline Phosphatase 54 Total Protein 5.6 L Albumin 2.8 L Globulin 2.8 Albumin/Globulin Ratio 1.0 [facility] Medical History Psoriatic arthritis Chicken pox Colon polyps Hypertension (~1987) Surgical History Anesthesia History of section (~08/02/87) Family History Mother PKD (polycystic kidney disease) Father Peripheral neuropathy Social History marital status: number of children: 1 household members: spouse and children lives independently: Yes occupational status: other (retired) Smoking Status: Never smoker alcohol intake: never substance use type: does not use Assessment & Plan Post-op Postoperative Procedures: Procedures Operation Date: 02/26/23 15:15 Actual Procedure Side Surgeon p Laparoscopic Appendectomy Converted to open Not Applicable Ulises Longo MD Postoperative status narrative: Postoperative day 1 status post ileocecectomy for perforated appendicitis. Progressing appropriately. -continue Zosyn -diet as tolerated -SCDs and prophylactic Lovenox -continue intra-abdominal drain we will remove tomorrow Anticipate discharge home tomorrow Quality VTE Deep Vein Thrombosis/Pulmonary Embolism Present on Admission: No
[2023-02-28 00:34] VITALS: BP 160/104; PULSE 85; RESP 15; TEMP 36.4; O2SAT 98
[2023-02-28 04:32] VITALS: BP 155/95; PULSE 82; RESP 17; TEMP 36.2; O2SAT 97
[2023-02-28 05:21] LABS: Add Manual Diff / Slide Review NO; Basophils Absolute Auto 0 /uL (0-100); Basophils Percent Auto 0.2 % (0-2); Eosinophils Absolute Auto 300 /uL (0-450); Eosinophils Percent Auto 2.7 % (2-4); Hematocrit 28.3 % (36-46); Hemoglobin 9.8 g/dL (12.0-16.0); Lymphocytes Absolute Auto 1200 /uL (1100-4500); Lymphocytes Percent Auto 12.4 % (25-40); Mean Corpuscular HGB Conc 34.6 % (30-36); Mean Corpuscular Hemoglobin 34.4 PG (26-34); Mean Corpuscular Volume 99.4 fL (80-100); Monocytes Absolute Auto 1400 /uL (0-900); Monocytes Percent Auto 14.5 % (3-14); Neutrophils Absolute Auto 7000 /uL (1500-7000); Neutrophils Percent Auto 70.2 % (50-75); Platelet Count 295 X10^3/uL (150-400); Red Blood Cell Count 2.85 X10^6/uL (4.0-5.2); Red Cell Distribution Width 15.8 % (11.6-14.8); White Blood Cell Count 9.9 X10^3/uL (4.5-11.0)
[2023-02-28 05:30] LABS: BUN Creatinine Ratio 17.4 (6-22); Blood Urea Nitrogen 15 mg/dL (7-17); Calcium 8.7 mg/dL (8.4-10.2); Carbon Dioxide 19 mmol/L (22-32); Chloride 99 mmol/L (98-107); Estimated Glomerular Filt Rate > 60 mL/min (>60); Glucose 97 mg/dL (80-110); HEMOLYSIS < 15 (0-50); Magnesium 1.4 mg/dL (1.6-2.3); Potassium 3.6 mmol/L (3.4-5.1); Sodium 129 mmol/L (137-145)
[2023-02-28 08:00] VITALS: BP 165/105; PULSE 82; RESP 18; TEMP 35.9; O2SAT 97
--- NOTE | 2023-02-28 10:32 | PM.DS.1 ---
History of Present Illness History of Present Illness Date Patient Seen: 02/28/23 Time Patient Seen: 16:35 Chief complaint: appendicitis Narrative: 67 y.o woman who re-presented to the hospital with abdominal pain. She was at [facility] between February 22 to with right colon colitis and enteritis of the terminal ileum treated with antibiotic therapy. She returned to the hospital February 25 again signs of perforated appendicitis and abscess. Discharge Providers Provider Date of admission: 02/25/23 04:10 Discharge Date: 02/28/23 Primary care physician: Fatemeh Sanchez DO Discharge provider: Ulises Longo MD Summary Hospital Course Discharge Diagnosis: acute appendicitis Hospital Course: Underwent attempted laparoscopic appendectomy which was converted to open ileocectomy. Operative findings notable for a RLQ abscess and a necrotic perforated appendix down to the base with an inflamed cecum. She was maintained on IV abx post op and at discharge she is in minimal pain without narcotic medication, afebrile, without leukocytoisis and tolerant of a regular diet. Will discharge home on course of post op PO abx. Exam Vital Signs (past 8 hours): - 02/28/23 04:32 02/28/23 08:00 Temperature 97.2 F L 96.6 F L Pulse Rate 82 82 Respiratory Rate 17 18 Blood Pressure 155/95 H 165/105 H Pulse Oximetry 97 97 Oxygen Flow Rate 0 Oxygen Delivery Method Nasal Cannula Oxygen Flow Rate 0 Narrative Exam Narrative: GENERAL: A well nourished, well developed adult woman, resting comfortably, in no acute distress. HEENT: Normocephalic, atraumatic. No scleral icterus CHEST: Rising symmetrically. No audible wheezes CARDIOVASCULAR: Warm and well perfused. Regular rate ABDOMEN: Soft, appropriately tender, midline dressing CDI EXTREMITIES: Normal tone and without edema. NEUROLOGIC: Moving all extremities spontaneously. No gross motor deficits. Objective Labs 02/28/23 04:54 02/28/23 04:54 Labs: Laboratory Results - last 24 hr 02/28/23 04:54 WBC 9.9 RBC 2.85 L Hgb 9.8 L Hct 28.3 L MCV 99.4 MCH 34.4 H MCHC 34.6 RDW 15.8 H Plt Count 295 Neut % (Auto) 70.2 Lymph % (Auto) 12.4 L [place] % (Auto) 14.5 H Eos % (Auto) 2.7 Baso % (Auto) 0.2 Neut # (Auto) 7000 Lymph # (Auto) 1200 [place] # (Auto) 1400 H Eos # (Auto) 300 Baso # (Auto) 0 Sodium 129 L Potassium 3.6 Chloride 99 Carbon Dioxide 19 L BUN 15 Creatinine 0.86 Estimated GFR > 60 BUN/Creatinine Ratio 17.4 Glucose 97 Calcium 8.7 Magnesium 1.4 L PFSH Medical History Psoriatic arthritis Chicken pox Colon polyps Hypertension (~1987) Surgical History Anesthesia History of section (~08/02/87) Family History Mother PKD (polycystic kidney disease) Father Peripheral neuropathy Social History marital status: number of children: 1 household members: spouse and children lives independently: Yes occupational status: other (retired) Smoking Status: Never smoker alcohol intake: never substance use type: does not use Discharge Plan Discharge Plan Patient Disposition: Home Provider Discharge Comment: -Okay to shower tomorrow with dressing in place -replace dressing over the drain site as needed with Band-Aid.. -Do not submerge wounds in water until seen in follow-up. -No lifting >20 lbs x 4 weeks. -Walking only for exercise for 4 weeks. -No driving while taking narcotics. Discharge orders & Medications Prescriptions: New acetaminophen [Tylenol] 325 mg capsule 650 mg PO QID PRN (Reason: pain) Qty: 60 0RF ibuprofen 200 mg tablet 400 mg PO Q6H Qty: 60 0RF levofloxacin 500 mg tablet 500 mg PO DAILY Qty: 7 0RF Continued hydrochlorothiazide 25 mg tablet See Rx Instructions .ROUTE .COMPLEX Qty: 90 1RF Dose Instruction: TAKE ONE TABLET BY MOUTH ONE TIME DAILY Rx Instructions: TAKE ONE TABLET BY MOUTH ONE TIME DAILY atenolol 50 mg tablet 50 mg PO DAILY Qty: 90 1RF losartan 100 mg tablet 100 mg PO DAILY naltrexone 50 mg tablet 50 mg PO DAILY Discontinued amoxicillin-pot clavulanate 875-125 mg Tablet 1 tab PO BID Qty: 24 0RF Follow up/Referrals: Ulises Longo MD [Physician] - 1 Week Diet/Activity/Treatments Diet: Diet as Tolerated Skin/Wound/Dressing Care Report to your healthcare provider any signs of infection, such as:: chills, fever, increased pain, unusual drainage and unusual redness Visit Report/Discharge Packet Stand Alone Forms: Patient Portal/API, Stroke Signs & Symptoms Discharge Data Primary Care Provider: Fatemeh Sanchez VTE Deep Vein Thrombosis/Pulmonary Embolism Present on Admission: No
--- NOTE | 2023-02-28 11:07 | PC.NURSE ---
Pt A&Ox4, VSS with BP 165/105. Pt eager to get home and refused all morning medications. Midline dressing dry and intact with old drainage. Jai drain had 60 mL serosanguinous output, removed by Dr. Longo. Reviewed discharge packet with patient and reinforced post operative restrictions and precautions, pt able to teach back independently. IV removed intact, tolerated well. Escorted patient downstairs in wheelchair and discharged her home with ride from spouse.
== END 2023-02-28 11:10 | disposition home or self-care (01) | DRG 330 ==
LOC: ED 04:01 → AC 04:10
PROVIDERS: Internal Medicine; Student in an Organized Health Care Education/Training Program; Surgery; Admitting Provider Surgery; Emergency Provider Emergency Medicine; PCP Family Medicine; Referring Provider Emergency Medicine; Visit Provider Surgery
PROC: 0DTJ4ZZ Resection of Appendix, Percutaneous Endoscopic Approach (ICD-10-PCS; CPT 44970; principal; 2023-02-26 15:15)
DX: K35.33 Acute appendicitis with perforation, localized peritonitis, and gangrene, with abscess (principal); E87.1 Hypo-osmolality and hyponatremia; N39.0 Urinary tract infection, site not specified; E87.6 Hypokalemia; I10 Essential (primary) hypertension; B96.20 Unspecified Escherichia coli [E. coli] as the cause of diseases classified elsewhere; E83.42 Hypomagnesemia
CPT/HCPCS: 36415; 44160; 74177; 80048; 80053; 83605; 83735; 84145; 85025; 85651; 86140; 96365; 96368; 96375; 99284; 99285; C9290; J1100; J1170; J1956; J2250; J2270; J2405; J2704; J3010; J3475; Q9967

== ENCOUNTER 2023-08-18 12:23 | Day surgery (SDC) | payer OTHER, MEDICARE, SELFPAY ==
[2023-02-25 04:58] VITALS: BMI 21.2
[2023-08-18] VITALS (8 sets, daily range): BP systolic 135–163; BP diastolic 85–101; PULSE 62–72; RESP 15–19; TEMP 36.4–36.6; O2SAT 98–100
--- NOTE | 2023-08-18 | PATH_ITS ---
[facility] Accession Number: [id number] No. of containers..01 Tissue . 01 Material submitted: . GASTRIC - GASTRIC. Modifiers: GASTRIC . 01 Diagnosis: GASTRIC: Gastric mucosa with mild chronic inflammation. No Helicobacter organisms identified. No intestinal metaplasia, dysplasia, or malignancy identified. [facility] 08/26/2023 1536 Local . 01 Electronically signed: . Aristeo Johnston MD, Pathologist NPI- [id number] . 01 Gross description: . Received in formalin, labeled with no identifiers or designation (authorization form received), are two gatica soft tissue fragments measuring 0.3-0.4 cm in greatest dimension. The specimen is submitted entirely in cassette A1. ([id number]) /[facility] 08/26/20231535 Local . 01 Microscopic: . GASTRIC: An immunohistochemical stain was performed to evaluate for Helicobacter organisms and is negative. The control stains appropriately. * This test was developed and its performance characteristics determined by [facility]. It has not been cleared or approved by the U.S. Food and Drug Administration. The FDA has determined that such clearance or approval is not necessary. This test is used for clinical purposes. It should not be regarded as investigational or for research. . 01 Pathologist provided ICD-10: K29.50 . 01 CPT . 086357, [id number] Specimen Comment: A courtesy copy of this report has been sent to [phone] Performed at: 01 [facility] [address] [place] [address] [id number] MD Aristeo Johnston MD Phone: [phone]
[2023-08-18] MEDS: LACTATED RINGERS 1,000 ML 100 ML IV (13:58)
--- NOTE | 2023-08-18 14:02 | P.HP_ITS ---
History of Present Illness History of Present Illness Date Patient Seen: 08/18/23 Time Patient Seen: 14:02 Chief complaint: EGD/Colonoscopy Narrative: 68-year-old woman personal history of colonic polyps here for diagnostic EGD and colonoscopy for diagnosis of anemia. She has not on anticoagulation occasionally uses NSAIDs. Most recent hematocrit 28.3. No blood per rectum abdominal pain unintentional weight loss. No family history of intestinal malignancy. Most recent colonoscopy 2017. [facility] Medical History (Updated 08/18/23 @ 14:04 by Ulises Longo MD) Psoriatic arthritis Chicken pox Colon polyps Hypertension (~1987) Surgical History Anesthesia History of section (~08/02/87) Family History Mother PKD (polycystic kidney disease) Father Peripheral neuropathy Social History marital status: number of children: 1 household members: spouse and children lives independently: Yes occupational status: other (retired) Smoking Status: Never smoker alcohol intake: current substance use type: does not use Meds Home Medications and Allergies Home Medications Medication Instructions Recorded Confirmed Type losartan 100 mg tablet 100 mg PO DAILY 02/25/23 08/18/23 History acetaminophen 325 mg capsule 650 mg (2 x 325 mg) PO QID PRN 02/28/23 08/18/23 Rx (Tylenol) pain #60 caps ibuprofen 200 mg tablet 400 mg (2 x 200 mg) PO Q6H #60 tabs 02/28/23 08/18/23 Rx hydrochlorothiazide 25 mg tablet 25 mg PO DAILY #90 tabs 08/10/23 08/18/23 Rx atenolol 50 mg tablet 50 mg PO DAILY #90 tabs 08/18/23 08/18/23 Rx hydrochlorothiazide 25 mg tablet 25 mg PO DAILY 08/18/23 08/18/23 History Allergies Allergy/AdvReac Type Severity Reaction Status Date / Time Penicillins Allergy Unknown unknown Verified 08/18/23 13:46 Exam Vital Signs (past 8 hours): - 08/18/23 13:33 Temperature 97.8 F Pulse Rate 72 Respiratory Rate 18 Blood Pressure 155/85 H Pulse Oximetry 100 Oxygen Delivery Method Room Air Oxygen Delivery Method Room Air Narrative Exam Narrative: GENERAL: A well nourished, well developed adult woman, resting comfortably, in no acute distress. HEENT: Normocephalic, atraumatic. No scleral icterus CHEST: Rising symmetrically. No audible wheezes CARDIOVASCULAR: Warm and well perfused. Regular rate ABDOMEN: Soft, non-tender, non-distended EXTREMITIES: Normal tone and without edema. NEUROLOGIC: Moving all extremities spontaneously. No gross motor deficits. Assessment & Plan Assessment and plan (1) Anemia: Qualifiers: Anemia type: unspecified type Qualified Code(s): D64.9 - Anemia, unspecified Status: Acute Assessment & Plan narrative: 68-year-old woman personal history of colonic polyps here for diagnostic esophagogastroduodenoscopy colonoscopy for diagnosis of anemia. Technical details were discussed. Risks, benefits, alternatives explained. Risks including but not limited to myocardial infarction, aspiration, bleeding, pain, missed lesion, incomplete examination, need for further radiographic studies, intestinal injury, and need for major abdominal surgery were discussed. All que stions were answered to their satisfaction, and they are in agreement with this plan.
--- NOTE | 2023-08-18 14:41 | P.OP.EGD&C_ITS ---
Operative Date/Time/Diagnoses Date of procedure: 08/18/23 Time of procedure: 14:41 Pre-op diagnosis: Anemia Post-op diagnosis: other (Gastritis) Procedure & Clinicians Study performed: Diagnostic esophagogastroduodenoscopy and colonoscopy Same procedure as scheduled: Yes Indications: 68-year-old woman with anemia here for diagnostic upper and lower endoscopy Surgeon: Ulises Longo Procedure Notes Procedure in detail: The history and physical was performed/updated and the patient is ASA class is 2. The procedure was discussed in detail with the patient. Potential risks complications including infection, bleeding, missed diagnosis, perforation, need for surgery, and were explained. Their questions were answered and informed consent was obtained. Patient placed in left lateral decubitus position. Time out was performed. Pro cedural sedation was administered by Anesthesia. A bite block was placed. the scope was inserted into the mouth and advanced through the esophagus and into the stomach. the pylorus was intubated and the duodenum was examined to the 2nd portion.. The scope was retroflexed within the stomach. The stomach was then decompressed and scope pulled back to the GE junction. The scope was then removed Examination began with a thorough inspection of the perianal area there was no evidence of fissures, fistulae, external hemorrhoids or cutaneous malignancy. The colonoscopy scope was then placed into the anal canal and was advanced to the cecum, which was identified by the ileocolic anastomosis. The scope was then slowly withdrawn examining colon thoroughly in all directions, irrigating it of any residual stool. FINDINGS -mild gastritis. No active hemorrhage however there are flecks of clot within the body of the stomach. Biopsy of the stomach performed with forceps. -unremarkable colonoscopy. No masses or polyps. -internal hemorrhoids The patient tolerated the procedure well. They will be discharged once criteria are met. The prep was of good/excellent quality. The withdrawl time was 6 minutes. Specimen(s): other (Gastric) Impression: Gastritis Post-procedure Plan for aftercare: No further colonoscopy necessary unless symptomatic. Start omeprazole 20 mg daily x6 weeks Disposition: same day surgery
--- NOTE | 2023-08-18 15:03 | PM.PN.1 ---
Subjective Subjective Interval history: dysrhythmia with no hx of such and asymptomatic. EGD and colonoscopy performed and EKG obtained post op. Post op EKG demonstrates A-flutter with varible AV block and evidence of inf and ant-septal FL of unknown date Exam Vital Signs (past 8 hours): - 08/18/23 13:33 08/18/23 14:44 08/18/23 14:49 Temperature 97.8 F 97.9 F Pulse Rate 72 72 66 Respiratory Rate 18 18 18 Blood Pressure 155/85 H 144/87 H 135/95 H Pulse Oximetry 100 99 98 Oxygen Delivery Method Room Air Room Air Room Air 08/18/23 14:54 08/18/23 14:59 Temperature Pulse Rate 65 69 Respiratory Rate 19 18 Blood Pressure 151/101 H 163/87 H Pulse Oximetry 98 99 Oxygen Delivery Method Room Air Room Air Oxygen Delivery Method Room Air [facility] Medical History (Updated 08/18/23 @ 15:08 by Hallie Warren MD) Psoriatic arthritis Chicken pox Colon polyps Hypertension (~1987) Surgical History Anesthesia History of section (~08/02/87) Family History Mother PKD (polycystic kidney disease) Father Peripheral neuropathy Social History marital status: number of children: 1 household members: spouse and children lives independently: Yes occupational status: other (retired) Smoking Status: Never smoker alcohol intake: current substance use type: does not use Assessment & Plan Assessment and plan (1) Dysrhythmia, cardiac: Status: Acute Plan Dr Jones, hospitalist consulted, who came to PACU to evaluate patient Assessment & Plan narrative: per hospitalist
--- NOTE | 2023-08-18 15:30 | P.CONS_ITS ---
History of Present Illness Consult details Date Patient Seen: 08/18/23 Time Patient Seen: 15:41 Chief complaint: EGD/Colonoscopy Reason for consult: Atrial flutter and abnormal ECG. Narrative: The patient is a 68-year-old female who underwent elective endoscopy and colonoscopy today. Atrial flutter which was rate detected was detected prior to the procedure. She was felt to be stable for the procedure and underwent the procedure without complications. In the postoperative phase she had an ECG which revealed septal Q-waves but no acute ST segment changes. A consult was called. I spoke with the patient, she denies any known history of heart conditions. She does not believe she has had an EKG in the past or an echocardiogram. She denies any known history of cardiac events. She also denies any history of exertional chest pain or dyspnea. She notes she is quite fit and quite active. She denies any palpitations, edema, or orthopnea. She feels completely at her baseline currently. She did have a cold last week with minor symptoms, no dyspnea that has been persistent. She denies history of thyroid issues. She lives in [place], drinks 1 [place] in the morning and rare alcohol. Meds Home Medications and Allergies Home Medications Medication Instructions Recorded Confirmed Type losartan 100 mg tablet 100 mg PO DAILY 02/25/23 08/18/23 History acetaminophen 325 mg capsule 650 mg (2 x 325 mg) PO QID PRN 02/28/23 08/18/23 Rx (Tylenol) pain #60 caps ibuprofen 200 mg tablet 400 mg (2 x 200 mg) PO Q6H #60 tabs 02/28/23 08/18/23 Rx hydrochlorothiazide 25 mg tablet 25 mg PO DAILY #90 tabs 08/10/23 08/18/23 Rx atenolol 50 mg tablet 50 mg PO DAILY #90 tabs 08/18/23 08/18/23 Rx hydrochlorothiazide 25 mg tablet 25 mg PO DAILY 08/18/23 08/18/23 History omeprazole 20 mg capsule,delayed 20 mg PO BID #60 caps 08/18/23 Rx release Allergies Allergy/AdvReac Type Severity Reaction Status Date / Time Penicillins Allergy Unknown unknown Verified 08/18/23 13:46 Review of Systems Review of Systems Narrative: All else reviewed and otherwise unremarkable except as noted in the history and physical. Exam Vital Signs (past 8 hours): - 08/18/23 13:33 08/18/23 14:44 08/18/23 14:49 Temperature 97.8 F 97.9 F Pulse Rate 72 72 66 Respiratory Rate 18 18 18 Blood Pressure 155/85 H 144/87 H 135/95 H Pulse Oximetry 100 99 98 Oxygen Delivery Method Room Air Room Air Room Air 08/18/23 14:54 08/18/23 14:59 08/18/23 15:04 Temperature 97.5 F L Pulse Rate 65 69 66 Respiratory Rate 19 18 18 Blood Pressure 151/101 H 163/87 H 150/91 H Pulse Oximetry 98 99 98 Oxygen Delivery Method Room Air Room Air Room Air 08/18/23 15:09 08/18/23 15:16 Temperature Pulse Rate 67 62 Respiratory Rate 15 18 Blood Pressure 155/89 H 158/88 H Pulse Oximetry 99 99 Oxygen Delivery Method Room Air Room Air Oxygen Delivery Method Room Air Narrative Exam Narrative: NAD, alert and oriented, fluent speech, calm. Normocephalic skull, EOMI, anicteric sclera, symmetric pupils. Oropharynx unremarkable, no droop. Neck supple, midline trachea Lungs clear, normal rate and effort. Heart regular, no murmur gallop or rub. Rate controlled. Abdomen is soft, non distended and non tender. Extremities are free of edema. Skin is free of rash or lesions. Joints are not swollen or deformed. Judgment appears to be normal. Objective ECG Impression: Atrial flutter, septal Q's. Normal ST segments. Rate controlled, 70's. Personally reviewed. [facility] Medical History (Updated 08/18/23 @ 15:08 by Hallie Warren MD) Psoriatic arthritis Chicken pox Colon polyps Hypertension (~1987) Surgical History Anesthesia History of section (~08/02/87) Family History Mother PKD (polycystic kidney disease) Father Peripheral neuropathy Social History marital status: number of children: 1 household members: spouse and children lives independently: Yes occupational status: other (retired) Tobacco & Substance Use Smoking Status: Never smoker alcohol intake: current substance use type: does not use Assessment & Plan Assessment & Plan narrative: 1. Newly detected atrial flutter which is rate controlled, presumably present on admission and stable. -the patient denies having an echo, known history of atrial fibrillation, or ECG in the past. She moved from [place] about 6 years ago. She denies a history of exertional chest pain, dyspnea or palpitations. 2. Abnormal ECG with septal Q-waves and non-acute ST segments, present on admission and active. -Called her PCP's office. They will arrange an OP ECHO, cardiology referral and PCP appt (TSH and discuss anticoagulation). -she is stable for discharge home and close follow up. I did discuss the case at length with anesthesiologist, Dr. Warren. 40 minutes spent with consultation, message in, and documentation. Time Spent With Patient Time with patient: 30 to 49 minutes with 50% spent counseling/coordinating care
== END 2023-08-18 15:30 | disposition home or self-care (01) ==
PROVIDERS: PCP Family Medicine; Referring Provider Surgery; Visit Provider Surgery
PROC: 0DJ08ZZ Inspection of Upper Intestinal Tract, Via Natural or Artificial Opening Endoscopic (ICD-10-PCS; CPT 43235; principal; 2023-08-18 13:45)
PROC: 0DJD8ZZ Inspection of Lower Intestinal Tract, Via Natural or Artificial Opening Endoscopic (ICD-10-PCS; CPT 45378; 2023-08-18 13:45)
DX: D64.9 Anemia, unspecified (principal); Z86.010 Personal history of colon polyps; K64.8 Other hemorrhoids; I48.92 Unspecified atrial flutter; K29.50 Unspecified chronic gastritis without bleeding
CPT/HCPCS: 45378; 43239; 93005; J2704

== ENCOUNTER → 2023-09-09 09:29 | Outpatient (CLI) | payer OTHER, MEDICARE, SELFPAY ==
[2023-02-25 04:58] VITALS: BMI 21.2
== END ==
LOC: CAR 09:30
PROVIDERS: PCP Family Medicine; Referring Provider Family Medicine; Visit Provider Family Medicine
DX: R00.2 Palpitations (principal)
CPT/HCPCS: 93246

== ENCOUNTER 2024-09-09 11:31 | Emergency (ER) | payer OTHER, MEDICARE, SELFPAY ==
[2023-02-25 04:58] VITALS: BMI 21.2
[2024-09-09] VITALS (12 sets, daily range): BP systolic 145–197; BP diastolic 79–116; PULSE 64–95; RESP 12–22; TEMP 36.3; O2SAT 93–100; BMI 21.2
--- NOTE | 2024-09-09 12:45 | DI.CT.S_ITS ---
PROCEDURE: CT ABDOMEN PELVIS W CON INDICATIONS: abd pain with hernia hx TECHNIQUE: After the administration of intravenous contrast, axial sections acquired from the lung bases to the pubic symphysis. Coronal and sagittal reformats were performed. For radiation dose reduction, the following was used: automated exposure control, adjustment of mA and/or kV according to patient size. COMPARISON: [facility], CT, CT ABDOMEN PELVIS W CON, 02/25/2023, 2:02. FINDINGS: Image quality: Diagnostic. Lower Chest: Cardiomegaly small hiatal hernia.. ABDOMEN: Liver: Mild steatosis. Patent portal vein. Gallbladder: No radiopaque gallstones or wall thickening. Biliary ducts: No biliary dilation. Pancreas: No ductal dilation. Spleen: Size is within normal limits. Adrenal Glands: No adrenal nodules. Kidneys and Ureters: No hydronephrosis. No solid mass. No complex renal cystic lesion which requires follow up. Stomach and Bowel: Small bowel obstruction, caused by the supraumbilical hernia containing a short segment of the small bowel. Bowel distal to the transition point does contain fluid. Abnormal wall enhancement of the small bowel. There is a long segment of small bowel wall thickening of the terminal ileum. Peritoneum: Small volume ascites. Mild mesenteric edema. Ventral Wall: No significant ventral hernia. Abdominal Nodes: No retroperitoneal or mesenteric adenopathy by size criteria. Vessels: Aorta and inferior vena cava are normal in size. PELVIS: Pelvic Organs: Unremarkable. Bladder: No bladder wall thickening, accounting for underdistention. Pelvic Nodes: No enlarged lymph nodes. Miscellaneous: No inguinal hernias are seen. Bones: No aggressive osseous abnormality. Stable compression deformity the L1 vertebral body. IMPRESSION: Partial, low-grade bowel obstruction with the transition point in the supraumbilical hernia. Bowel distal to the obstruction contains fluid. There is wall enhancement, but mesenteric edema and small volume ascites is present. Long segment of bowel wall thickening of the terminal ileum, which may indicate superimposed ileitis. Correlate with history of Crohn's disease. Dictated by: Allen Miller M.D. on 09/09/2024 at 13:24 Approved by: Allen Miller M.D. on 09/09/2024 at 13:28
[2024-09-09] MEDS: MORPHINE 4 MG/ML INJ IV (12:50)
[2024-09-09] MEDS: ONDANSETRON 4 MG/2 ML INJ IV (12:50)
[2024-09-09 12:54] LABS: Add Manual Diff / Slide Review NO; Basophils Absolute Auto 0 /uL (0-100); Basophils Percent Auto 0.4 % (0-2); Eosinophils Absolute Auto 0 /uL (0-450); Eosinophils Percent Auto 0.4 % (2-4); Hematocrit 35.2 % (36-46); Hemoglobin 12.3 g/dL (12.0-16.0); Lymphocytes Absolute Auto 1500 /uL (1100-4500); Lymphocytes Percent Auto 17.8 % (25-40); Mean Corpuscular Hemoglobin 35.1 PG (26-34); Mean Corpuscular Volume 100.4 fL (80-100); Monocytes Absolute Auto 900 /uL (0-900); Monocytes Percent Auto 10.7 % (3-14); Neutrophils Absolute Auto 6000 /uL (1500-7000); Neutrophils Percent Auto 70.7 % (50-75); Platelet Count 270 X10^3/uL (150-400); Red Blood Cell Count 3.51 X10^6/uL (4.0-5.2); Red Cell Distribution Width 13.7 % (11.6-14.8); White Blood Cell Count 8.5 X10^3/uL (4.5-11.0)
[2024-09-09 13:00] LABS: Alanine Aminotransferase 24 IU/L (<35); Albumin 4.4 g/dL (3.5-5.0); Albumin Globulin Ratio 1.5 (1.0-2.8); Alkaline Phosphatase 65 U/L (38-126); Aspartate Aminotransferase 37 IU/L (14-36); BUN Creatinine Ratio 24.3 (6-22); Bilirubin Total 1.1 mg/dL (0.2-1.3); Blood Urea Nitrogen 25 mg/dL (7-17); Calcium 9.2 mg/dL (8.4-10.2); Carbon Dioxide 24 mmol/L (22-32); Chloride 95 mmol/L (98-107); Estimated Glomerular Filt Rate 58 mL/min (>60); Glucose 117 mg/dL (70-99); HEMOLYSIS 22 (0-50); Lipase 157 U/L (23-300); Potassium 3.8 mmol/L (3.4-5.1); Sodium 131 mmol/L (137-145); Total Protein 7.4 g/dL (6.3-8.2)
--- NOTE | 2024-09-09 13:27 | EKG_ITS ---
[address] [address] Test Date: 2024-09-09 Pat Name: Judy Montague Department: [facility] Room: Gender: Female Rehabilitation Team Lead: SHERIN : 1955 Requested By: Order Number: [id number] Reading MD: Luis Carlos Nunes MD Measurements Intervals [place] Rate: 75 P: 80 ID: QRS: -3 QRSD: 80 T: 259 QT: 362 QTc: 404 Interpretive Statements Atrial flutter with variable AV block Anterior infarct , age undetermined NO SIGNIFICANT CHANGE FROM PRIOR TRACING Electronically Signed On 09-09-2024 16:36:43 PDT by Luis Carlos Nunes MD
[2024-09-09] MEDS: HYDROMORPHONE 1 MG INJ IV (13:42)
[2024-09-09 13:45] LABS: Lactate (Lactic Acid) 1.2 mmol/L (0.7-2.1)
--- NOTE | 2024-09-09 14:22 | ED.ABDPAIN ---
HPI - Abdominal Pain General Chief Complaint: Abdominal Pain Stated Complaint: Hernia pain Time Seen by Provider: 09/09/24 14:22 Source: patient, RN notes reviewed and old records reviewed Mode of arrival: Ambulatory Limitations: no limitations History of Present Illness HPI narrative: 69-year-old female history of atrial flutter, hypertension, psoriatic arthritis on dabigatran daily patient presents with complaint of hernia she can not push back inside in his causing pain and nausea. Patient states she was had a hernia for some time since 2022. Patient states it would normally self reduce, over the last week it has been a little bit more prominent but she was able to push it back in. Starting last night she has not been able to reduce it herself. She was had became painful last night has been persistent. She has been nauseated but not vomiting. States she had very small scant amount of solid stool this morning but last large or regular bowel movement was yesterday. She states no flatus since yesterday. Denies urinary symptoms. Patient denies any other Related Data Home Medications Medication Instructions Recorded Confirmed hydrochlorothiazide 25 mg tablet 25 mg PO DAILY 08/18/23 09/22/23 Previous Rx's Medication Instructions Recorded acetaminophen 325 mg capsule 650 mg (2 x 325 mg) PO QID PRN 02/28/23 (Tylenol) pain #60 caps omeprazole 20 mg capsule,delayed 20 mg PO BID #60 caps 08/18/23 release dabigatran etexilate 150 mg 150 mg PO BID #180 caps 12/25/23 capsule (Pradaxa) losartan 100 mg tablet 100 mg PO DAILY #90 tabs 02/01/24 prednisone 20 mg tablet See Rx Instructions PO DAILY #12 05/31/24 tabs hydrochlorothiazide 25 mg tablet 25 mg PO DAILY #90 tabs 07/26/24 atenolol 50 mg tablet 50 mg PO DAILY #90 tabs 08/09/24 Allergies Allergy/AdvReac Type Severity Reaction Status Date / Time Penicillins Allergy Unknown unknown Verified 09/09/24 12:02 Review of Systems Review of Systems ROS Unobtainable: All systems reviewed & are unremarkable except as noted in HPI and below Patient History Medical History Encounter for subsequent annual wellness visit (AWV) in Medicare patient Atrial flutter Psoriatic arthritis Chicken pox Colon polyps Hypertension (~1987) Surgical History Anesthesia History of section (~08/02/87) Family History Mother PKD (polycystic kidney disease) Father Peripheral neuropathy Social History marital status: number of children: 1 household members: spouse and children lives independently: Yes occupational status: other (retired) Smoking Status: Never smoker alcohol intake: current substance use type: does not use Smoking Status: Never smoker alcohol intake frequency: a few times a month Alcohol type: wine Exam Initial Vital Signs Initial Vital Signs: Vital Signs Temperature 97.3 F L 09/09/24 12:02 Pulse Rate 95 H 09/09/24 12:02 Respiratory Rate 20 09/09/24 12:02 Blood Pressure 177/105 H 09/09/24 12:02 Pulse Oximetry 99 09/09/24 12:02 Oxygen Delivery Method Room Air 09/09/24 12:02 Course Orders Ordered: ED Orders 09/09/24 12:40 Complete Blood Count AUTO DIFF Stat Comprehensive Metabolic Panel Stat Lactate (Lactic Acid) Stat Lipase Stat 09/09/24 12:45 CT abdomen pelvis w con Stat 09/09/24 13:23 EKG-12 Lead Stat 09/09/24 14:34 Urine Culture Stat Urine Microscopic Stat Discontinued Medications Hydromorphone HCl (Hydromorphone 1 Mg Inj) 1 mg IV NOW ONE Stop: 09/09/24 13:40 Last Admin: 09/09/24 13:42 Dose: 1 mg Documented By: ANSHUL Sodium Chloride (Normal Saline 0.9%) 1,000 mls @ 1,000 mls/hr IV BOLUS ONE Stop: 09/09/24 15:25 Last Infusion: 09/09/24 15:53 Dose: Infused Documented By: Admin: 09/09/24 14:59 Dose: 1,000 mls/hr Documented By: ANSHUL Morphine Sulfate (Morphine 4 Mg/Ml Inj) 4 mg IV NOW ONE Stop: 09/09/24 12:47 Last Admin: 09/09/24 12:50 Dose: 4 mg Documented By: ANSHUL Ondansetron HCl (Ondansetron 4 Mg/2 Ml Inj) 4 mg IV NOW PRN PRN Reason: Nausea And Vomiting Last Admin: 09/09/24 12:50 Dose: 4 mg Documented By: ASNHUL Ondansetron HCl (Ondansetron 4 Mg Odt) 4 mg PO NOW PRN PRN Reason: Nausea And Vomiting Vital Signs Vital signs: Vital Signs - 8 hr 09/09/24 12:02 09/09/24 12:52 09/09/24 12:52 Temperature 97.3 F L Pulse Rate 95 H 90 Respiratory Rate 20 Blood Pressure 177/105 H 196/115 H Pulse Oximetry 99 99 Oxygen Delivery Method Room Air 09/09/24 12:57 09/09/24 12:57 09/09/24 12:57 Temperature Pulse Rate 83 83 Respiratory Rate 22 22 Blood Pressure 175/107 H Pulse Oximetry 99 99 Oxygen Delivery Method 09/09/24 12:57 09/09/24 13:12 09/09/24 13:13 Temperature Pulse Rate 90 Respiratory Rate Blood Pressure 175/107 H 197/97 H Pulse Oximetry 100 Oxygen Delivery Method 09/09/24 13:13 09/09/24 13:30 09/09/24 13:30 Temperature Pulse Rate 76 81 Respiratory Rate 20 14 Blood Pressure 196/116 H Pulse Oximetry 97 98 Oxygen Delivery Method 09/09/24 14:00 09/09/24 14:00 09/09/24 14:30 Temperature Pulse Rate 74 Respiratory Rate 12 Blood Pressure 145/88 H 182/112 H Pulse Oximetry 97 Oxygen Delivery Method 09/09/24 14:30 09/09/24 15:00 09/09/24 15:02 Temperature Pulse Rate 64 64 Respiratory Rate 13 21 Blood Pressure 157/87 H Pulse Oximetry 99 96 Oxygen Delivery Method 09/09/24 15:02 09/09/24 15:30 09/09/24 15:30 Temperature Pulse Rate 65 65 Respiratory Rate 16 13 Blood Pressure 145/79 H Pulse Oximetry 96 93 Oxygen Delivery Method Room Air 09/09/24 16:00 09/09/24 16:00 Temperature Pulse Rate 65 Respiratory Rate 16 Blood Pressure 165/88 H Pulse Oximetry 97 Oxygen Delivery Method MDM - Abdominal Pain Lab Data 09/09/24 12:40 09/09/24 12:40 Labs: Lab Results 09/09/24 09/09/24 Range/Units 12:40 14:34 WBC 8.5 (4.5-11.0) X10^3/uL RBC 3.51 L (4.0-5.2) X10^6/uL Hgb 12.3 (12.0-16.0) g/dL Hct 35.2 L (36-46) % MCV 100.4 H (80-100) fL MCH 35.1 H (26-34) PG MCHC 35.0 (30-36) % RDW 13.7 (11.6-14.8) % Plt Count 270 (150-400) X10^3/uL Neut % (Auto) 70.7 (50-75) % Lymph % (Auto) 17.8 L (25-40) % Braxton % (Auto) 10.7 (3-14) % Eos % (Auto) 0.4 L (2-4) % Baso % (Auto) 0.4 (0-2) % Neut # (Auto) 6000 (1581-8223) /uL Lymph # (Auto) 1500 (1753-8520) /uL Braxton # (Auto) 900 (0-900) /uL Eos # (Auto) 0 (0-450) /uL Baso # (Auto) 0 (0-100) /uL Sodium 131 L (137-145) mmol/L Potassium 3.8 (3.4-5.1) mmol/L Chloride 95 L (98-107) mmol/L Carbon Dioxide 24 (22-32) mmol/L BUN 25 H (7-17) mg/dL Creatinine 1.03 (0.52-1.04) mg/dL Estimated GFR 58 L (>60) mL/min BUN/Creatinine Ratio 24.3 H (6-22) Glucose 117 H (70-99) mg/dL Lactate 1.2 (0.7-2.1) mmol/L Calcium 9.2 (8.4-10.2) mg/dL Total Bilirubin 1.1 (0.2-1.3) mg/dL AST 37 H (14-36) IU/L ALT 24 (<35) IU/L Alkaline Phosphatase 65 (38-126) U/L Total Protein 7.4 (6.3-8.2) g/dL Albumin 4.4 (3.5-5.0) g/dL Globulin 3.0 (1.7-4.1) g/dL Albumin/Globulin Ratio 1.5 (1.0-2.8) Lipase 157 (23-300) U/L Urine RBC 1-5/hpf (0-5/HPF) Urine WBC 5-10/hpf H (0-5/HPF) Ur Squamous Epith Cells 1-5 /hpf (0-5/HPF) Urine Bacteria Many (>30) H (None) Ur Culture Indicated? Specimen cultured Vol Urine Centrifuged 10ml (spun) Point of care testing: Urine Dip Bedside Urine Glucose Negative Bedside Urine Bilirubin - Negative Bedside Urine Ketone - Negative Urine Specific Merino 1.015 Bedside Urine Occult Blood + Bedside Urine pH 6.0 Bedside Urine Protein - Negative Bedside Urine Urobilinogen - Negative Bedside Urine Nitrite - Negative Bedside Urine Leukocytes - Negative Esterase ECG Data Attestation: I personally reviewed and interpreted this ECG as follows: Interpretation: Atrial flutter rate of 75, appears to be right 4-[address] elevation. Prior EKG from 08/18/2023 shows atrial flutter with variable AV block with a rate of 72. Patient has a personnel monitor 09/29/2023 which shows atrial fib/flutter continuously 100% of time burden 45-106 beats per minute for 14 days. MDM Narrative Medical decision making narrative: Atrial flutter rate of 75, appears to be right 4-1 block.? [address] acute [address] elevation.? Prior EKG from 08/18/2023 shows atrial flutter with variable AV block with a rate of 72. Patient has a personnel monitor 09/29/2023 which shows atrial fib/flutter continuously 100% burden 45-106 beats per minute for 14 days.? Patient's labs show white count 8.5 hemoglobin of 12 platelets of 270.? Chemistry shows sodium of 131 patient was 129 in February of 2023 chloride 95 BUN 25 with a creatinine 1.038 potassium 3.8 with a CO2 of 24.? Glucose is 117 lactate 1.2 AST is 37 bilirubin is 1.1 with a ALT of 24 and alk-phos is 65 and a lipase of 157. Lactaet is 1.2 CT abdomen pelvis shows cardiomegaly, small hiatal hernia small-bowel obstruction caused by supraumbilical hernia containing short segment of small bowel distal transition point does contain fluid abnormal wall enhancement of the small bowel long segment small bowel wall thickening of the terminal ileum, small volume ascites, mild mesenteric edema. Patient had morphine, Zofran and additional narcotic pain medication. Patient states she feels much better pain is currently resolved. Attempted reduction myself here in the department. Patient tolerated very well did not have any pain but was unsuccessful. Spoke with Dr. Shukla general surgery at 2:40 p.m., he will come evaluate the patient. Dr. Shukla in the department, he evaluated the patient. Attempted reduction and was successful. Discussing with the patient plan for outpatient repair of patient's hernia with strict return precautions. Discharge Plan Departure Patient Disposition: Home Clinical Impression: Supraumbilical hernia Instructions: Abdominal Hernia Activity Restrictions/Additional Instructions: Follow up with Dr. Shukla. Call tomorrow to set up a appointment. Contact is included below follow up for repair of your hernia. Continue take a stool softener regularly to make sure bowel movements are soft and regular. If you develop recurrent hernia that has painful, we will not reduce easily, if you are having vomiting, not having bowel movements or not passing any gas or flatus please return to the emergency department. Prescriptions: No Action dabigatran etexilate [Pradaxa] 150 mg capsule 150 mg PO BID Qty: 180 3RF losartan 100 mg tablet 100 mg PO DAILY Qty: 90 3RF hydrochlorothiazide 25 mg tablet 25 mg PO DAILY Qty: 90 3RF atenolol 50 mg tablet 50 mg PO DAILY Qty: 90 1RF prednisone 20 mg tablet See Rx Instructions PO DAILY Qty: 12 0RF Rx Instructions: 2 tabs po (40 mg) daily x 3 days, then 1 tab po (20 mg) daily x 3 days, then 0.5 tab (10 mg) daily x 6 days, then stop. orally daily; acetaminophen [Tylenol] 325 mg capsule 650 mg PO QID PRN (Reason: pain) Qty: 60 0RF hydrochlorothiazide 25 mg tablet 25 mg PO DAILY omeprazole 20 mg capsule,delayed release(DR/EC) 20 mg PO BID Qty: 60 0RF Referrals: Stuart Shukla MD [Physician] - Kashmir Becerra DO [Primary Care Provider] - Stand Alone Forms: Patient Portal/API/Survey
[2024-09-09] MEDS: SODIUM CHLORIDE 0.9% 1,000 ML 1000 ML IV (14:59)
[2024-09-09 15:01] LABS: Bacteria Urine Many (>30); Culture Indicated Urine Specimen Cultured; RBC Urine 1-5/HPF (0-5/HPF); Squamous Epithelial Cell Urine 1-5 /HPF (0-5/HPF); Urine Volume 10mL (spun); WBC Urine 5-10/HPF (0-5/HPF)
--- NOTE | 2024-09-09 15:05 | PM.CN.IH.1 ---
History of Present Illness Consult details Date Patient Seen: 09/09/24 Time Patient Seen: 15:05 Chief complaint: Hernia pain Reason for consult: Incarcerated incisional hernia with questionable bowel obstruction Narrative: Judy is a 69-year-old woman who presented to the emergency department today with increased pain associated with an incarcerated incisional hernia. She had had the hernia for about 2 years after an appendectomy. It always reduced easily until last night. It became incarcerated and it became quite painful. She did have a bowel movement this morning. She came to the emergency room today and a CT shows a loop of bowel incarcerated in the hernia with a possible bowel obstruction. She had received some morphine and Dilaudid in the ER. Meds Home Medications and Allergies Home Medications Medication Instructions Recorded Confirmed Type acetaminophen 325 mg capsule 650 mg (2 x 325 mg) PO QID PRN 02/28/23 09/22/23 Rx (Tylenol) pain #60 caps hydrochlorothiazide 25 mg tablet 25 mg PO DAILY 08/18/23 09/22/23 History omeprazole 20 mg capsule,delayed 20 mg PO BID #60 caps 08/18/23 09/22/23 Rx release dabigatran etexilate 150 mg 150 mg PO BID #180 caps 12/25/23 Rx capsule (Pradaxa) losartan 100 mg tablet 100 mg PO DAILY #90 tabs 02/01/24 Rx prednisone 20 mg tablet See Rx Instructions PO DAILY #12 05/31/24 05/31/24 Rx tabs hydrochlorothiazide 25 mg tablet 25 mg PO DAILY #90 tabs 07/26/24 Rx atenolol 50 mg tablet 50 mg PO DAILY #90 tabs 08/09/24 Rx Allergies Allergy/AdvReac Type Severity Reaction Status Date / Time Penicillins Allergy Unknown unknown Verified 09/09/24 12:02 Exam Vital Signs (past 8 hours): - 09/09/24 12:02 09/09/24 12:52 09/09/24 12:52 Temperature 97.3 F L Pulse Rate 95 H 90 Respiratory Rate 20 Blood Pressure 177/105 H 196/115 H Pulse Oximetry 99 99 Oxygen Delivery Method Room Air 09/09/24 12:57 09/09/24 12:57 Temperature Pulse Rate 83 Respiratory Rate 22 Blood Pressure 175/107 H Pulse Oximetry 99 Oxygen Delivery Method Oxygen Delivery Method Room Air Narrative Exam Narrative: There was a midline incisional hernia that was reduced with some manipulation The fascial defect was 1-2 cm Abdomen is soft, nontender Objective Labs 09/09/24 12:40 09/09/24 12:40 Labs: Laboratory Results - last 24 hr 09/09/24 09/09/24 12:40 14:34 WBC 8.5 RBC 3.51 L Hgb 12.3 Hct 35.2 L MCV 100.4 H MCH 35.1 H MCHC 35.0 RDW 13.7 Plt Count 270 Neut % (Auto) 70.7 Lymph % (Auto) 17.8 L Starr % (Auto) 10.7 Eos % (Auto) 0.4 L Baso % (Auto) 0.4 Neut # (Auto) 6000 Lymph # (Auto) 1500 Starr # (Auto) 900 Eos # (Auto) 0 Baso # (Auto) 0 Sodium 131 L Potassium 3.8 Chloride 95 L Carbon Dioxide 24 BUN 25 H Creatinine 1.03 Estimated GFR 58 L BUN/Creatinine Ratio 24.3 H Glucose 117 H Lactate 1.2 Calcium 9.2 Total Bilirubin 1.1 AST 37 H ALT 24 Alkaline Phosphatase 65 Total Protein 7.4 Albumin 4.4 Globulin 3.0 Albumin/Globulin Ratio 1.5 Lipase 157 Urine RBC 1-5/hpf Urine WBC 5-10/hpf H Ur Squamous Epith Cells 1-5 /hpf Urine Bacteria Many (>30) H Ur Culture Indicated? Specimen cultured Vol Urine Centrifuged 10ml (spun) [facility] Medical History Encounter for subsequent annual wellness visit (AWV) in Medicare patient Atrial flutter Psoriatic arthritis Chicken pox Colon polyps Hypertension (~1987) Surgical History Anesthesia History of section (~08/02/87) Family History Mother PKD (polycystic kidney disease) Father Peripheral neuropathy Social History marital status: number of children: 1 household members: spouse and children lives independently: Yes occupational status: other (retired) Tobacco & Substance Use Smoking Status: Never smoker alcohol intake: current substance use type: does not use Assessment & Plan Assessment and plan (1) Incisional hernia, without obstruction or gangrene: Status: Acute Plan The hernia was reduced manually in the ER after she had received morphine and Dilaudid. She was okay to discharge home. I will see her in the office to schedule her for an elective ventral incisional hernia repair with mesh. We talked about what to do if he becomes incarcerated again. She should first try to lay down flat and try to relax and see if she can manually reduce it manually and if she can not she can come back to the ER. Time-Based Coding :: [TOTAL MINUTES] spent with patient and on the chart (including review of chart, obtaining history, exam, reviewing outside data, placing orders, documenting exam and treatment plan, and counseling patient) on [DATE]. PROFEE Charge Codes Inpatient or Observation consultation: 12811
== END 2024-09-09 16:23 | disposition home or self-care (01) ==
PROVIDERS: Emergency Provider Emergency Medicine; PCP Family Medicine
DX: K43.9 Ventral hernia without obstruction or gangrene (principal)
CPT/HCPCS: 36415; 74177; 80053; 81003; 81015; 83605; 83690; 85025; 87077; 87086; 87186; 93005; 96361; 96374; 96375; 99284; J1171; J2270; J2405; Q9967

== ENCOUNTER 2024-10-19 08:00 | Day surgery (SDC) | payer MEDICARE, OTHER, SELFPAY ==
[2023-02-25 04:58] VITALS: BMI 21.2
[2024-10-06 13:07] VITALS: BMI 21.9
[2024-10-19 08:19] VITALS: BP 159/94; PULSE 89; RESP 16; TEMP 36.3; O2SAT 97; BMI 21.9
[2024-10-19] MEDS: LACTATED RINGERS 1,000 ML 42 ML IV ×2 (08:31→10:55)
[2024-10-19] MEDS: ACETAMINOPHEN 325 MG TABLET 975 MG PO (08:33)
--- NOTE | 2024-10-19 09:16 | PM.PREOP ---
Pre-operative Note COVID-19 COVID-19 status: Not tested Interval Note History & Physical reviewed/Exam performed by Physician: Yes Changes to H&P: No ASA Class (for procedural sedation): II
[2024-10-19] MEDS: CEFAZOLIN 2 GM/100 ML PREMIX 100 ML IV (10:05)
--- NOTE | 2024-10-19 10:05 | SUR.OPER ---
Supine on padded OR bed, head on pillow, arms secured on padded arm boards at <90 degrees abduction, legs uncrossed, safety belt at thigh, tape over blanket over lower legs. PA in room at time of positioning , all pressure points padded and approved by PA and anesthesia
[2024-10-19] MEDS: BUPIVACAINE 0.5% W/ EPI (PF) 30 ML VIAL INJ (10:17)
--- NOTE | 2024-10-19 11:41 | PM.OP.1 ---
Operative Date/Time/Diagnoses Date of procedure: 10/19/24 Time of procedure: 11:41 Pre-op diagnosis: Ventral incisional hernia Post-op diagnosis: same Procedure & Clinicians Procedure: Open ventral incisional hernia repair with mesh Same procedure(s) as scheduled: Yes Surgeon: Stuart Shukla [place] Former Hand: Brannon Mancia Anesthesia Type: General Operative Notes Findings: Multiple midline fascial defects from the umbilicus to the upper midline Applied: none Estimated Blood Loss (mL): 20 Procedure in detail: Ancef was administered. The patient was brought to the operating room, placed on the table in the supine position and general endotracheal anesthesia was induced. The abdomen was prepped and draped in the usual fashion. A time-out was performed. A 6 cm incision was made from the umbilicus to the shelter point between the umbilicus and the xiphoid process. Dissection was carried down to the hernia sac and anterior sheath. Multiple midline fascial defects were encountered. Three of them were between 1 and 2 cm in diameter and 2 additional defects were smaller than 1 cm. All of the defects were connected and turned into one large defect measuring about 12 cm. Some Marcaine with epinephrine was injected into the fascia. The fascia was then closed in the midline with multiple interrupted 0 Ethibond sutures. The subcutaneous adipose tissue was cleared off of the anterior sheath circumferentially about 2 cm in each direction. A 15 cm x 8 cm piece of polypropylene mesh was trimmed to fit over the fascial closure and secured with Tisseel. Once the Tisseel was dried the subcutaneous adipose tissue was closed with interrupted 3-0 Vicryl sutures. The skin was closed with multiple interrupted 3-0 Vicryl dermal sutures followed by a running 4 Monocryl subcuticular closure. Steri-Strips were applied and an abdominal binder was applied. EBL: 20 mL Insert assistance Complications: none Post-operative Condition: stable Disposition: PACU
[2024-10-19 11:47] VITALS: BP 130/87; PULSE 86; RESP 16; TEMP 36.2; O2SAT 95
[2024-10-19 11:52] VITALS: BP 130/87; PULSE 87; RESP 16; O2SAT 98
[2024-10-19 11:57] VITALS: BP 131/86; PULSE 79; RESP 14; O2SAT 98
[2024-10-19 12:00] VITALS: BP 131/86; PULSE 89; RESP 14; O2SAT 96
== END 2024-10-19 12:30 | disposition home or self-care (01) ==
PROVIDERS: PCP Family Medicine; Referring Provider Surgery; Visit Provider Surgery
PROC: (CPT 49595; principal; 2024-10-19 09:15)
DX: K43.2 Incisional hernia without obstruction or gangrene (principal)
CPT/HCPCS: 49595; C1781; C9250; J0690; J1100; J1885; J2405; J2704; J3010